=== PATIENT | female | born 1960 | race American Indian/Alaskan Native ===

== ENCOUNTER 2017-06-07 11:14 | Emergency (ER) | payer BC ==
--- NOTE | 2017-06-07 11:39 | ED PDOC ---
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 Patient reports that she has been getting care for her CA in [place] at the [facility] ([facility]). She states that she called her doctors yesterday as well as this morning out of concern for her symptoms, and that they told her that they could not understand her because of her slurred speech, and recommended that she go to the ED to be checked out. Patient went to work this morning, where she was also noted to have slurred speech and seemed to be confused, at which point she was brought to the ED by her coworkers. Patient's slurred speech has currently resolved, but she continues to have a headache. She denies any chest pain, syncope, numbness, weakness, vision changes, or gait instability. Of Note: Patient states that her presentation now is similar to her presentation two years ago, when she was previously at [facility] and found to have breast CA. Oncologist: Dr. Terra Hylton Against Medical Advice - AMA Patient Left Against Medical Advice: The patient declines admission to the hospital and wishes to leave the Emergency Department. This action is against my medical advice. This decision was made with informed refusal. The patient was told that admission to the hospital is necessary. Explanation of the reasons why were discussed. The risks of leaving were explained to the patient and include, but are not limited to, worsening of known or currently unknown conditions, permanent disability and from undiagnosed or untreated conditions. The patient has the capacity to make this informed decision and understands my explanation of the current medical problem and risks of leaving. The patient voluntarily accepts these risks and signed an AMA form documenting our conversation. The patient was given the opportunity to ask questions and reconsider. The patient was encouraged to return to the Emergency Department at any time for further care. NIHSS Stroke Scale - Date/Time Evaluation Performed When Was NIHSS Performed: Baseline - How Severe is the Stroke Level of Consciousness: 0=Alert LOC to Questions: 0=Both comments correct LOC to commands: 0=Obeys both correctly Best Gaze: 0=Normal Visual: 0=No visual loss Facial: 0=Normal Motor Arm - Left: 0=No drift Motor Arm - Right: 0=No drift Motor Leg - Left: 0=No drift Motor Leg - Right: 0=No drift Limb Ataxia: 0=Absent Best Language: 0=No aphasia Dysarthia: 0=Normal articulation Extinction & Inattention (Neglect): 0=Normal, no object rTPA Inclusion/Exclusion - Inclusion Criteria for Altepase Patient is 18 years or Older: Yes The Clinical Diagnosis of Ischemic Stroke That is Causing a Potentially Disabling Neurological Deficit: No Time of Onset is Well Established to be Less Than 270 Minute Before Treatment Would Begin: No Risk/Benefit Discussed With Patient/Family Member Present: No Past Medical History Reviewed: Historical Data, Nursing Documentation, Vital Signs - Medical History PMH: HTN, Malignancy Denies: Chronic Kidney Disease Other PMH: breast CA with metastasis to the brain, had course of chemo - Surgical History Other surgeries: mastectomy - Family History Family History: States: Unknown Family Hx - Home Medications Home Medications: Ambulatory Orders Medication Instructions Recorded Carvedilol [Coreg Cr] 20 mg PO DAILY 12/02/15 Valsartan/Hydrochlorothiazide 1 tab PO DAILY 12/02/15 [Diovan Hct 320-25 mg Tablet] Lapatinib Ditosylate [Tykerb] 750 mg PO DAILY 06/07/17 Levetiracetam [Keppra] 500 mg PO BID #60 tablet 06/07/17 Methylprednisolone [Medrol Dose 4 mg PO ASDIR #21 mg 06/07/17 Pack (21 tabs)] - Allergies Allergies/Adverse Reactions: Allergies Allergy/AdvReac Type Severity Reaction Status Date / Time No Known Allergies Allergy Verified 12/02/15 15:39 Review of Systems ROS Statement: Except As Marked, All Systems Reviewed And Found Negative Constitutional: Negative for: Other (denies syncope) Eyes: Negative for: Vision Change Cardiovascular: Negative for: Chest Pain Neurological: Positive for: Change in Speech (Patient had slurred speech but it is currently resolved), Headache. Negative for: Weakness, Incoordination ( denies gait instability), Dizziness Physical Exam - Reviewed Nursing Documentation Reviewed: Yes Vital Signs Reviewed: Yes - Physical Exam Appears: Positive for: Non-toxic, No Acute Distress Head Exam: Positive for: ATRAUMATIC, NORMOCEPHALIC Skin: Positive for: Normal Color, Warm Eye Exam: Positive for: Normal appearance, EOMI, PERRL Neck: Positive for: Normal, Supple Cardiovascular/Chest: Positive for: Regular Rate, Rhythm. Negative for: Murmur Respiratory: Positive for: Normal Breath Sounds. Negative for: Wheezing Gastrointestinal/Abdominal: Positive for: Normal Exam, Soft. Negative for: Tenderness Back: Positive for: Normal Inspection. Negative for: L CVA Tenderness, R CVA Tenderness Extremity: Positive for: Normal ROM. Negative for: Deformity, Swelling Neurologic/Psych: Positive for: Alert, babbitt spinner II-XII (Normal, no cranial nerve deficits), Oriented, Cerebellar Tests (Normal). Negative for: Motor/Sensory Deficits, Other (No slurred speech) - Laboratory Results Result Diagrams: 06/07/17 12:00 06/07/17 12:00 Medical Decision Making Medical Decision Making: Impression: Headache and Dysarthria since yesterday, ddx inlcude but not limited to possible CVA vs. Vasogenic edema from metastatic brain cancer Plan: Patient is outside of window for tPA, last time seen normal is unknown, possibly yesterday; due to this code stroke was not activated. Orders: * CT Head w/o contrast * EKG * Alcohol Serum * BMP * Urine Drug Screen * Troponin I * Reevaluation Will discuss case with neurologist and oncologist after CT are back. CT HEAD WITHOUT CONTRAST HISTORY: headache confusion COMPARISON: None available. TECHNIQUE: Axial computed tomography images were obtained through the head/brain without intravenous contrast. Radiation dose: Total exam DLP = 1051.16 mGy-cm. This CT exam was performed using one or more of the following dose reduction techniques: Automated exposure control, adjustment of the mA and/or kV according to patient size, and/or use of iterative reconstruction technique. FINDINGS: HEMORRHAGE: No intracranial hemorrhage. BRAIN: No discrete mass identified. However, there are multiple foci of vasogenic edema suggestive of neoplastic disease. There is coarse calcifications seen in the left temporoparietal region, increased in extent compared to prior examination. There is dense calcification along the anterior falx cerebri. This may represent a meningioma or near falx calcification. There is coarse inferior right parafalcine calcification new compared to prior examination. This is adjacent to area of vasogenic edema and likely represents a calcifying mass. There is new left inferior frontal vasogenic edema. There is increasing left temporal occipital vasogenic edema. There is increasing right occipital parietal vasogenic edema. All of these areas of vasogenic edema likely represent foci of metastatic disease. Further evaluation with gadolinium enhanced magnetic resonance imaging is suggested. No atrophy or chronic microvascular ischemic changes. VENTRICLES: Unremarkable. No hydrocephalus. CALVARIUM: Unremarkable. PARANASAL SINUSES: Unremarkable as visualized. No significant inflammatory changes. MASTOID AIR CELLS: Unremarkable as visualized. No inflammatory changes. OTHER FINDINGS: None. IMPRESSION: Multifocal vasogenic edema increased in extent and distribution compared to prior examination of 12/02/2015. Likely metastatic disease. Several areas of coarse parenchymal calcification likely represent calcifying metastases. Further evaluation with gadolinium enhanced magnetic resonance imaging is advised. 14:[address] Krishnan, Neurologist, who recommended for patient to have MRI Brain without contrast. He additionally suggested that the patient be started on Decadron 10 mg IV, and if patient will be admitted, to begin Keppra [address] Krishnan stated that patient is appropriate for discharge, but to first discuss case with patient's oncologist at [facility]. Also discussed all of findings and consultations with the patient herself, who is willing to follow the recommendations of the neurologist. Patient given Medrol pack. Called patient' oncologist's office at [facility], waiting call back. 15:31 Did not receive call back from oncologist at [facility]. Patient decided she wants to leave because she has "stuff to take care of," and states that she will go see her doctor in [place]. Patient is alert and oriented x3, and has no signs of confusion or neurological deficit at this time, and wishes to leave [facility]. Given Rx for Keppra and Medrol dose pack. Clinical Impression: Vasogenic brain edema, Metastatic cancer to brain Scribe Attestation: Documented by Soila Eugene, acting as a scribe for Mar Swanson MD. Provider Scribe Attestation: All medical record entries made by the Scribe were at my direction and personally dictated by me. I have reviewed the chart and agree that the record accurately reflects my personal performance of the history, physical exam, medical decision making, and the department course for this patient. I have also personally directed, reviewed, and agree with the discharge instructions and disposition. Disposition - Clinical Impression Clinical Impression: Metastatic cancer to brain, Vasogenic brain edema, Left against medical advice - Patient ED Disposition Is Patient to be Admitted: Yes Doctor Will See Patient In The: Office Counseled Patient/Family Regarding: Studies Performed, Diagnosis, Need For Followup - Disposition Referrals: Your, PCP [Other] Disposition: Against Medical Advice Disposition Time: 15:33 Condition: GOOD Additional Instructions: Take your medications. Follow up with your neurologist and oncologist in 2-3 days. Prescriptions: Levetiracetam [Keppra] 500 mg PO BID #60 tablet Methylprednisolone [Medrol Dose Pack (21 tabs)] 4 mg PO ASDIR #21 mg Instructions: Brain Metastases, Leaving Against Medical Advice
[2017-06-07 11:46] VITALS: BP 130/69; PULSE 67; RESP 20; TEMP 98.1; O2SAT 96
[2017-06-07 12:22] LABS: BASO # 0.1 K/uL (0.0-0.2); EOS # 0.1 K/uL (0.0-0.7); HEMOGLOBIN 13.4 g/dL (12.0-16.0); LYMPH # 2.2 K/uL (1.0-4.3); LYMPH % 42.9 % (20.0-40.0); MEAN CELL VOLUME 84.6 fl (81.0-99.0); MEAN CORPUSCULAR HGB CONC 34.3 g/dL (33.0-37.0); MEAN PLATELET VOLUME 9.7 fl (7.2-11.7); MONO # 0.6 K/uL (0.0-0.8); MONO % 12.2 % (0.0-10.0); NEUT # 2.2 K/uL (1.8-7.0); NEUT % 42.9 % (50.0-75.0); NRBC % 0.1 % (0.0-0.0); RBC 4.63 Mil/uL (3.80-5.20); RED CELL DISTRIBUTION WIDTH 13.7 % (11.5-14.5); WHITE BLOOD COUNT 5.2 K/uL (4.8-10.8)
[2017-06-07 12:25] LABS: INR 1.1 (0.9-1.2); PARTIAL THROMBOPLASTIN TIME 28.2 Seconds (25.6-37.1); PROTHROMBIN TIME 12.5 Seconds (9.8-13.1)
[2017-06-07 12:37] LABS: BLOOD UREA NITROGEN 14 mg/dl (7-17); CALCIUM 9.6 mg/dL (8.4-10.2); GFR AFRICAN-AMERICAN > 60; GFR NON-AFRICAN AMERICAN > 60
--- NOTE | 2017-06-07 13:02 | CT ---
PROCEDURE: CT HEAD WITHOUT CONTRAST. HISTORY: headache confusion COMPARISON: None available. TECHNIQUE: Axial computed tomography images were obtained through the head/brain without intravenous contrast. Radiation dose: Total exam DLP = 1051.16 mGy-cm. This CT exam was performed using one or more of the following dose reduction techniques: Automated exposure control, adjustment of the mA and/or kV according to patient size, and/or use of iterative reconstruction technique. FINDINGS: HEMORRHAGE: No intracranial hemorrhage. BRAIN: No discrete mass identified. However, there are multiple foci of vasogenic edema suggestive of neoplastic disease. There is coarse calcifications seen in the left temporoparietal region, increased in extent compared to prior examination. There is dense calcification along the anterior falx cerebri. This may represent a meningioma or near falx calcification. There is coarse inferior right parafalcine calcification new compared to prior examination. This is adjacent to area of vasogenic edema and likely represents a calcifying mass. There is new left inferior frontal vasogenic edema. There is increasing left temporal occipital vasogenic edema. There is increasing right occipital parietal vasogenic edema. All of these areas of vasogenic edema likely represent foci of metastatic disease. Further evaluation with gadolinium enhanced magnetic resonance imaging is suggested. No atrophy or chronic microvascular ischemic changes. VENTRICLES: Unremarkable. No hydrocephalus. CALVARIUM: Unremarkable. PARANASAL SINUSES: Unremarkable as visualized. No significant inflammatory changes. MASTOID AIR CELLS: Unremarkable as visualized. No inflammatory changes. OTHER FINDINGS: None. IMPRESSION: Multifocal vasogenic edema increased in extent and distribution compared to prior examination of 12/02/2015. Likely metastatic disease. Several areas of coarse parenchymal calcification likely represent calcifying metastases. Further evaluation with gadolinium enhanced magnetic resonance imaging is advised.
[2017-06-07] MEDS ORDERED: Dexamethasone 10 MG in Sodium Chloride 0.9% 50 ML IV ONE (13:22)
[2017-06-07] MEDS ORDERED: Potassium Chloride 20 mEq ER Tab PO ONE (13:23)
--- NOTE | 2017-06-09 18:22 | CARD ---
APPROVED REPORT EKG Measurement Heart [id number] [id number] <Conclusion> Normal sinus rhythm Minimal voltage criteria for LVH, may be normal variant T wave abnormality, consider anterior ischemia Abnormal ECG
== END 2017-06-07 15:37 | disposition left against medical advice (07) ==
LOC: H.ER 11:14
DX: C79.31 Secondary malignant neoplasm of brain (principal); G93.6 Cerebral edema; I10 Essential (primary) hypertension; Z85.3 Personal history of malignant neoplasm of breast
CPT/HCPCS: 70450; 80048; 82948; 84484; 85025; 85610; 85730; 93005; 99285; G0480

== ENCOUNTER 2017-08-25 15:41 | Emergency (ER) | payer BC ==
[2017-08-25 16:04] VITALS: PULSE 78
--- NOTE | 2017-08-25 17:10 | ED PDOC ---
HPI: Eye Injury/Pain Chief Complaint (Provider): blurry vision left eye History Per: Patient History/Exam Limitations: no limitations Onset/Duration Of Symptoms: Days (7) Current Symptoms Are (Timing): Still Present Injury To Eye?: No Severity: Moderate Wears Contact Lens?: No Associated Symptoms: denies: Pain, Swelling, Discharge From Eye Additional History Per: Patient Additional Complaint(s): 56 yr old F presents to ED with complaint of blurry vision of left eye x 1 week. PMHx includes breast cancer with metastasis to brain and liver. Patient has recent neurosurgery procedure on 08/11/17: placement of leksell frame and laser interstitial therapy of left temporal area for tx of brain metastasis. Denies one sided weakness, slurred speech, difficulty swallowing, nausea, vomiting, chest pain or difficulty walking. Reports normal urine and stool output, is tolerating PO fluids and solids. PMD: Dr. Cornell Oncologist: Dr. Terra Hylton ([phone]) ([facility] [address]) has f/u appt on 09/08/17 for repeat PET scan Neurosurgeon: Meir Beasley ([place]): has f/u appt on 09/08/17 <Lillian Stephenson - Last Filed: 08/25/17 21:55> <Kam Mckeon - Last Filed: 08/26/17 06:30> <Mar Owens - Last Filed: 08/26/17 09:36> Time Seen by Provider: 08/25/17 16:09 Chief Complaint (Nursing): Eye Problem Supervising Attending Note - Supervising Attending Note The Documented history was done by the: Physician Lock Assembler The documented physical exam was done by the: Physician Lock Assembler - Attestation: I have personally seen and examined this patient.: Yes I have fully participated in the care of the patient.: Yes I have reviewed all pertinent clinical information, including history, physical exam and plan: Yes <Kam Mckeon - Last Filed: 08/26/17 06:30> - Supervising Attending Note The Documented history was done by the: Physician Lock Assembler, Attending Physician The documented physical exam was done by the: Physician Lock Assembler, Attending Physician The documented procedures were done by the: Physician Lock Assembler, Attending Physician <Mar Owens - Last Filed: 08/26/17 09:36> Past Medical History Vital Signs: Last Vital Signs Temp 97.5 F L 08/25/17 16:01 Pulse 78 08/25/17 16:01 Resp 20 08/25/17 16:01 BP 146/93 H 08/25/17 16:01 Pulse Ox 98 08/25/17 16:01 - Medical History PMH: HTN, Malignancy Denies: Chronic Kidney Disease - Surgical History Other surgeries: left temporal leksell frame placement/laser interstitial tx - Family History Family History: States: Unknown Family Hx - Living Arrangements Living Arrangements: With Family - Social History Current smoker - smoking cessation education provided: No Ex-Smoker (has not smoked in the last 12 months): No Alcohol: None Drugs: Denies <Lillian Stephenson - Last Filed: 08/25/17 21:55> Vital Signs: Last Vital Signs Temp 98.2 F 08/25/17 22:47 Pulse 78 08/25/17 22:47 Resp 16 08/25/17 22:47 BP 142/79 08/25/17 22:47 Pulse Ox 97 08/25/17 22:47 <Kam Mckeon - Last Filed: 08/26/17 06:30> Reviewed: Historical Data, Nursing Documentation, Vital Signs Vital Signs: Last Vital Signs Temp 98.2 F 08/25/17 22:47 Pulse 78 08/25/17 22:47 Resp 16 08/25/17 22:47 BP 142/79 08/25/17 22:47 Pulse Ox 97 08/25/17 22:47 - Medical History PMH: No Chronic Diseases - Surgical History Surgical History: No Surg Hx - Family History Family History: States: No Known Family Hx <Mar Owens - Last Filed: 08/26/17 09:36> - Home Medications Home Medications: Ambulatory Orders Medication Instructions Recorded Carvedilol [Coreg Cr] 20 mg PO DAILY 12/02/15 Valsartan/Hydrochlorothiazide 1 tab PO DAILY 12/02/15 [Diovan Hct 320-25 mg Tablet] Lapatinib Ditosylate [Tykerb] 750 mg PO DAILY 06/07/17 Levetiracetam [Keppra] 500 mg PO BID #60 tablet 06/07/17 Methylprednisolone [Medrol Dose 4 mg PO ASDIR #21 mg 06/07/17 Pack (21 tabs)] Dexamethasone [Decadron] 2 mg PO DAILY #5 tab 08/25/17 - Allergies Allergies/Adverse Reactions: Allergies Allergy/AdvReac Type Severity Reaction Status Date / Time No Known Allergies Allergy Verified 08/25/17 15:56 Review of Systems Constitutional: Negative for: Fever, Chills, Sweats, Weakness Eyes: Positive for: Vision Change (left eye blurry vision) ENT: Negative for: Ear Pain, Nose Discharge, Throat Pain Cardiovascular: Negative for: Chest Pain, Palpitations, Light Headedness Respiratory: Negative for: Cough, Shortness of Breath, Hemoptysis, Wheezing Gastrointestinal: Negative for: Nausea, Vomiting, Abdominal Pain, Diarrhea Genitourinary Female: Negative for: Dysuria, Frequency Musculoskeletal: Negative for: Neck Pain, Shoulder Pain, Arm Pain Skin: Negative for: Rash, Lesions Neurological: Negative for: Weakness, Change in Speech, Confusion, Seizures, Headache, Dizziness Psych: Negative for: Anxiety <Lillian Stephenson - Last Filed: 08/25/17 21:55> ROS Statement: Except As Marked, All Systems Reviewed And Found Negative <Mar Owens - Last Filed: 08/26/17 09:36> Physical Exam - Physical Exam Appears: Positive for: No Acute Distress Head Exam: Positive for: ATRAUMATIC, NORMOCEPHALIC Skin: Positive for: Normal Color, Warm, Dry Eye Exam: Positive for: EOMI, PERRL, Other (patient able to distinguish color from left eye, poor effort with visual acuity test). Negative for: Nystagmus, Periorbital swelling, Periorbital tenderness, Conjunctival injection, Scleral icterus ENT: Negative for: Nasal Congestion, Pharyngeal Erythema, Tonsillar Exudate Neck: Positive for: Painless ROM, Supple Cardiovascular/Chest: Positive for: Regular Rate, Rhythm. Negative for: Gallop , Murmur Respiratory: Positive for: Normal Breath Sounds. Negative for: Crackles, Rhonchi Pulses-Carotid (L): 2+ Pulses-Carotid (R): 2+ Pulses-Radial (L): 2+ Pulses-Radial (R): 2+ Gastrointestinal/Abdominal: Positive for: Bowel Sounds (present/normal), Soft. Negative for: Tenderness Extremity: Positive for: Normal ROM. Negative for: Pedal Edema, Calf Tenderness , Swelling Neurologic/Psych: Positive for: Alert, excelsior machine operator II-XII (grossly intact), Oriented, Mood/Affect (normal/full range), Gait (normal). Negative for: Motor/Sensory Deficits, Aphasia, Facial Droop <Lillian Stephenson - Last Filed: 08/25/17 21:55> - Reviewed Nursing Documentation Reviewed: Yes Vital Signs Reviewed: Yes <Mar Owens - Last Filed: 08/26/17 09:36> - Laboratory Results Result Diagrams: 08/25/17 18:52 08/25/17 18:52 - ECG O2 Sat by Pulse Oximetry: 98 - Progress ED Course And Treament: -CBC w/diff: WBC 11.7, rest normal -CMP: AST/ALT 53/122, rest normal -CT head w/o contrast: grossly unchanged from prior examination, redemonstration of calcification lesions in left fronto-temporo lobe with extensive vasogenic edema throughout white matter tracts of frontal and parietal lobes -patient stable, tolerated PO fluids and solids -case discussed with neurosurgery Dr. Thomason recommended order Brain MRI w and w/o contrast -Brain MRI w and w/o contrast: a mass in the left parasellar region enhances homogeneously and appears to contact the left optic nerve near the optic chiasm , this likely represents a meningioma and measures 2.4 x 2 x 1.9 -MRI results discussed with neurosurgery-Dr. Thomason: patient is stable for discharge, recommends rx Decadron 2mg PO QD x 5 days, followup with oncologist sooner than scheduled appt of 09/08/17, f/u with neurologist as scheduled -Patient remained stable in ED, ambulating without difficulty, tolerating PO fluids and solids, imaging and labs results reviewed with patient, as well as outpatient followup instructions. <Lillian Stephenson - Last Filed: 08/25/17 21:55> - Laboratory Results Result Diagrams: 08/25/17 18:52 08/25/17 18:52 <Kam Mckeon - Last Filed: 08/26/17 06:30> - Laboratory Results Result Diagrams: 08/25/17 18:52 08/25/17 18:52 <Mar Owens - Last Filed: 08/26/17 09:36> Disposition - Patient ED Disposition Is Patient to be Admitted: No Counseled Patient/Family Regarding: Studies Performed, Diagnosis, Need For Followup, Rx Given - Disposition Disposition: Routine/Home Disposition Time: 21:50 <Lillian Stephenson - Last Filed: 08/25/17 21:55> <Kam Mckeon - Last Filed: 08/26/17 06:30> - Patient ED Disposition Is Patient to be Admitted: Transfer of Care Counseled Patient/Family Regarding: Studies Performed, Diagnosis - Disposition Disposition: Transfer of Care Disposition Time: 19:00 <Mar Owens - Last Filed: 08/26/17 09:36> - Clinical Impression Clinical Impression: Metastatic cancer to brain - Disposition Condition: STABLE Additional Instructions: -Take rx Decadron 2mg PO QD x 5 days -Followup with oncologist sooner than scheduled appt of 09/08/17 -Followup with with neurosurgeon as scheduled (patient has appt 09/08/17) Prescriptions: Dexamethasone [Decadron] 2 mg PO DAILY #5 tab Instructions: Brain Metastases
--- NOTE | 2017-08-25 18:04 | CT ---
PROCEDURE: CT HEAD WITHOUT CONTRAST. HISTORY: blurry vision-left eye, hx brain metastasis COMPARISON: 06/07/2017 TECHNIQUE: Axial computed tomography images were obtained through the head/brain without intravenous contrast. Radiation dose: Total exam DLP = mGy-cm. This CT exam was performed using one or more of the following dose reduction techniques: Automated exposure control, adjustment of the mA and/or kV according to patient size, and/or use of iterative reconstruction technique. FINDINGS: HEMORRHAGE: No intracranial hemorrhage. BRAIN: Re- demonstration of calcified lesion in the left fronto temporal lobe with extensive vasogenic edema throughout the white matter tracts of the frontal lobe and parietal lobe. Findings grossly unchanged from prior examination. VENTRICLES: Unremarkable. No hydrocephalus. CALVARIUM: Unremarkable. PARANASAL SINUSES: Unremarkable as visualized. No significant inflammatory changes. MASTOID AIR CELLS: Unremarkable as visualized. No inflammatory changes. OTHER FINDINGS: None. IMPRESSION: Re- demonstration of calcified lesion in the left fronto temporal lobe with extensive vasogenic edema throughout the white matter tracts of the frontal lobe and parietal lobe. Findings grossly unchanged from prior examination.
[2017-08-25 18:56] LABS: BASO % 0.4 % (0.0-2.0); EOS % 0.3 % (0.0-4.0); HEMOGLOBIN 12.1 g/dL (12.0-16.0); LYMPH # 1.8 K/uL (1.0-4.3); LYMPH % 15.7 % (20.0-40.0); MEAN CELL VOLUME 89.2 fl (81.0-99.0); MEAN CORPUSCULAR HEMOGLOBIN 29.6 pg (27.0-31.0); MEAN CORPUSCULAR HGB CONC 33.2 g/dL (33.0-37.0); MEAN PLATELET VOLUME 9.4 fl (7.2-11.7); MONO # 0.4 K/uL (0.0-0.8); MONO % 3.8 % (0.0-10.0); NEUT # 9.4 K/uL (1.8-7.0); NEUT % 79.8 % (50.0-75.0); NRBC % 0.1 % (0.0-0.0); RBC 4.1 Mil/uL (3.80-5.20); RED CELL DISTRIBUTION WIDTH 16.2 % (11.5-14.5); WHITE BLOOD COUNT 11.7 K/uL (4.8-10.8)
[2017-08-25] MEDS ORDERED: Dexamethasone 10 MG in Dextrose 5% In Water 50 ML IV ONE (19:03)
[2017-08-25 19:22] LABS: ALB/GLOB RATIO 1.1 (1.0-2.1); ALBUMIN 3.6 g/dL (3.5-5.0); ALT/SGPT 122 U/L (9-52); AST/SGOT 53 U/L (14-36); BLOOD UREA NITROGEN 14 mg/dl (7-17); CALCIUM 9.5 mg/dL (8.4-10.2); GFR AFRICAN-AMERICAN > 60; GFR NON-AFRICAN AMERICAN > 60
[2017-08-25] MEDS ORDERED: Dexamethasone 10 MG in Sodium Chloride 0.9% 50 ML IV ONE (19:30)
[2017-08-25] MEDS ORDERED: Gadodiamide 287 MG/ML VIAL (15ML) IV ONE (19:32)
[2017-08-25 22:47] VITALS: BP 142/79; RESP 16; TEMP 98.2; O2SAT 97
--- NOTE | 2017-08-28 08:55 | MRI ---
PROCEDURE: MRI BRAIN WITH AND WITHOUT CONTRAST HISTORY: brain mets edema COMPARISON: Brain MRI 12/02/2015 without contrast as well as head CT without contrast 08/25/2017. TECHNIQUE: Multiplanar, multisequence MR images of the brain were obtained with and without intravenous contrast enhancement. FINDINGS: HEMORRHAGE: Multifocal metastases are identified throughout the brain with occasional calcifications. Microscopic calcification or hemosiderin may also be present in all of these foci and therefore hemorrhagic metastases are questioned. No obvious subarachnoid, subdural or epidural hematoma identified. DWI: No evidence of an acute or early subacute infarction. 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 This lesion is well-circumscribed and enhances brightly . However, there are numerous poorly circumscribed peripherally enhancing lesions which. Different in this sphenoid wing lesion scattered throughout the cerebrum in the interval with the cerebellum now involve the inferomedial segments and possibly the upper mid dull at the right side. A left frontal lesion at the anterior vertex is increased in size now measuring 2.6 x 1.3 cm compared to 2.1 by 0.7 cm previously. An enlarging anterior parafalcine lesion now measures 3.1 x 2.5 cm compared to 2.1 x 1.0 cm. The left temporal lobe lesion measures 2.9 x 2.2 cm previously measuring 1.9 by 1.0 cm. 3.3 x 2.1 cm previously measured 1.5 x 0.8 cm. A new sub cm enhancing focus is seen at the medial right temporal lobe measuring only approximately 6 mm greatest dimension with 3-4 new, similar foci at the anterior inferior bilateral cerebellar hemispheres. Two new sub cm cortical enhancing lesions are seen at the left frontal lobe medially. Overall vasogenic edema is increased throughout the lesions encountered wrist ictal increased at the right temporooccipital distribution. There is no subfalcine herniation or crowding of the basilar cisterns. ENHANCEMENT: Please see brain parenchyma section above. VENTRICLES: Unremarkable. No hydrocephalus. CRANIUM: Unremarkable. ORBITS: Grossly unremarkable. PARANASAL SINUSES/MASTOIDS: Clear VASCULAR SYSTEM: Skull base flow voids intact. OTHER FINDINGS: None . IMPRESSION: Advancing metastases with mild enlargement a possible benign meningioma left sphenoid wing. Significant increase in vasogenic edema is seen throughout the cerebrum without falcine or subuncal herniation.
== END 2017-08-25 22:48 | disposition home or self-care (01) ==
LOC: H.ER 15:41
DX: C79.31 Secondary malignant neoplasm of brain (principal); I10 Essential (primary) hypertension
CPT/HCPCS: 70450; 70553; 80053; 85025; 96365; 99283; A9579; J1100

== ENCOUNTER 2017-10-15 16:39 | Inpatient (IN) | payer BC ==
[2017-10-15] MEDS ORDERED: Sodium Chloride 0.9% 1,000 ML IV STA ×2 (17:31→17:53)
[2017-10-15 17:46] LABS: BASO % 0.3 % (0.0-2.0); EOS % 0.2 % (0.0-4.0); HEMOGLOBIN 16.8 g/dL (12.0-16.0); LYMPH # 2.2 K/uL (1.0-4.3); LYMPH % 23.8 % (20.0-40.0); MEAN CELL VOLUME 89.5 fl (81.0-99.0); MEAN CORPUSCULAR HEMOGLOBIN 30.1 pg (27.0-31.0); MEAN CORPUSCULAR HGB CONC 33.6 g/dL (33.0-37.0); MEAN PLATELET VOLUME 10.6 fl (7.2-11.7); MONO # 0.9 K/uL (0.0-0.8); MONO % 10.1 % (0.0-10.0); NEUT % 65.6 % (50.0-75.0); NRBC % 0.5 % (0.0-0.0); RBC 5.6 Mil/uL (3.80-5.20); RED CELL DISTRIBUTION WIDTH 14.8 % (11.5-14.5); WHITE BLOOD COUNT 9.1 K/uL (4.8-10.8)
[2017-10-15 17:48] LABS: VENOUS BLOOD GAS BASE EXCESS 5.6 mmol/L (0.0-2.0); VENOUS BLOOD GAS PCO2 45 mmHg (40-60); VENOUS BLOOD GAS PO2 19 mm/Hg (30-55); VENOUS BLOOD PH 7.44 (7.32-7.43)
[2017-10-15 17:53] LABS: ALB/GLOB RATIO 1.3 (1.0-2.1); ALBUMIN 4.2 g/dL (3.5-5.0); ALT/SGPT 50 U/L (9-52); AST/SGOT 73 U/L (14-36); BLOOD UREA NITROGEN 22 mg/dl (7-17); CALCIUM 10.2 mg/dL (8.4-10.2); GFR AFRICAN-AMERICAN > 60; GFR NON-AFRICAN AMERICAN 57
--- NOTE | 2017-10-15 17:53 | ED PDOC ---
HPI: General Adult Time Seen by Provider: 10/15/17 16:47 Chief Complaint (Nursing): Weakness/Neurological Deficit History Per: Patient, Family (this is a 56 yo lady who presents for evaluation of progressive weakness. 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 Patient denies cough, nausea, vomiting, diarrhea. Her sister does not have information on her last visit to the [facility] because she did not go with her. Her who accompanied her is not present. Her sister says that she does not know where the patient's is.) Past Medical History Reviewed: Historical Data, Nursing Documentation, Vital Signs Vital Signs: Last Vital Signs Temp 99.6 F 10/15/17 16:41 Pulse 106 H 10/15/17 18:47 Resp 21 10/15/17 18:47 BP 104/73 10/15/17 16:41 Pulse Ox 98 10/15/17 18:47 - Medical History PMH: HTN, Malignancy (breast cancer with mets) Denies: Chronic Kidney Disease - Family History Family History: States: Unknown Family Hx - Living Arrangements Living Arrangements: With Family - Home Medications Home Medications: Ambulatory Orders Medication Instructions Recorded Carvedilol [Coreg Cr] 20 mg PO DAILY 12/02/15 Valsartan/Hydrochlorothiazide 1 tab PO DAILY 12/02/15 [Diovan Hct 320-25 mg Tablet] Lapatinib Ditosylate [Tykerb] 750 mg PO DAILY 06/07/17 Levetiracetam [Keppra] 500 mg PO BID #60 tablet 06/07/17 Methylprednisolone [Medrol Dose 4 mg PO ASDIR #21 mg 06/07/17 Pack (21 tabs)] Dexamethasone [Decadron] 2 mg PO DAILY #5 tab 08/25/17 - Allergies Allergies/Adverse Reactions: Allergies Allergy/AdvReac Type Severity Reaction Status Date / Time No Known Allergies Allergy Verified 08/25/17 15:56 Review of Systems ROS Statement: Except As Marked, All Systems Reviewed And Found Negative Constitutional: Positive for: Weakness. Negative for: Fever ENT: Negative for: Throat Pain Cardiovascular: Negative for: Chest Pain, Palpitations Respiratory: Negative for: Cough, Shortness of Breath, Hemoptysis, SOB with Exertion Gastrointestinal: Negative for: Nausea, Vomiting, Abdominal Pain, Diarrhea Genitourinary Female: Negative for: Dysuria, Frequency Physical Exam - Reviewed Nursing Documentation Reviewed: Yes Vital Signs Reviewed: Yes - Physical Exam Appears: Positive for: Well, Non-toxic, No Acute Distress Head Exam: Positive for: ATRAUMATIC, NORMAL INSPECTION, NORMOCEPHALIC Skin: Positive for: Normal Color, Warm, DRY Eye Exam: Positive for: EOMI, Normal appearance, PERRL ENT: Positive for: Normal ENT Inspection Neck: Positive for: Normal, Painless ROM Cardiovascular/Chest: Positive for: Regular Rate, Rhythm Respiratory: Positive for: CNT, Normal Breath Sounds Gastrointestinal/Abdominal: Positive for: Normal Exam, Soft Back: Positive for: Normal Inspection Extremity: Positive for: Other (motor 5/5 in both UE and LE; equal). Negative for: Tenderness, Deformity, Swelling Neurologic/Psych: Positive for: Alert, Oriented - Laboratory Results Result Diagrams: 10/15/17 17:39 10/15/17 17:39 - ECG O2 Sat by Pulse Oximetry: 100 Medical Decision Making Medical Decision Making: case d/w Sveta (nurse at [facility] who answered phone) who read the patient's documentation. Per her readings, patient was admitted on 06/12/2017 for 3 days because of altered mental status. She had slurred speech and blurred vision then. She was treated there for 3 days with Decadron, Keppra. It was noted that she had disease progression with leptomeningeal involvement. She was recommending to undergo radiation. She then return for followup 09/10/2017. According to the notes read, there was no surgical procedure done. Hospice care was recommended at that visit. She then was lost to followup. According to Sveta, she was advised to seek hospice care. Received notes from [facility] regarding her treatment there. The notes are scanned into her chart here by the unit secretary. Disposition - Clinical Impression Clinical Impression: Breast cancer metastasized to brain - Patient ED Disposition Is Patient to be Admitted: Yes Doctor Will See Patient In The: Hospital - Disposition Disposition: Transfer of Care Disposition Time: 18:52 Condition: FAIR Forms: TM (Indonesian) - Pt Status Changed To: Hospital Disposition Of: Inpatient - Admit Certification Admit to Inpatient:: After my assessment, the patient will require hospitalization for at least two midnights. This is because of the severity of symptoms shown, intensity of services needed, and/or the medical risk in this patient being treated as an outpatient. - POA Present On Arrival: None
[2017-10-15 17:58] LABS: INR 1.4 (0.9-1.2); PARTIAL THROMBOPLASTIN TIME 26.8 Seconds (25.6-37.1); PROTHROMBIN TIME 15.3 Seconds (9.8-13.1)
--- NOTE | 2017-10-15 18:06 | CT ---
PROCEDURE: CT HEAD WITHOUT CONTRAST. HISTORY: h/o breast cancer with mets to brain COMPARISON: CT head dated 08/25/2017. TECHNIQUE: Axial computed tomography images were obtained through the head/brain without intravenous contrast. Radiation dose: Total exam DLP = 825.8 mGy-cm. This CT exam was performed using one or more of the following dose reduction techniques: Automated exposure control, adjustment of the mA and/or kV according to patient size, and/or use of iterative reconstruction technique. FINDINGS: HEMORRHAGE: No intracranial hemorrhage. BRAIN: Redemonstration of multiple areas of vasogenic edema in the bilateral frontal lobes, bilateral parietal and occipital lobes. Redemonstration of high-density left parasellar and left temporoparietal lesions. VENTRICLES: Stably prompt. No hydrocephalus. CALVARIUM: Unremarkable. PARANASAL SINUSES: Unremarkable as visualized. No significant inflammatory changes. MASTOID AIR CELLS: Unremarkable as visualized. No inflammatory changes. OTHER FINDINGS: None. IMPRESSION: Stable appearance of bilateral metastatic lesions with associated vasogenic edema. No gross evidence of new lesion or significant mass-effect.
[2017-10-15 18:25] LABS: SQUAMOUS EPITHIAL < 1 /hpf (0-5); URINE AMORPHOUS SEDIMENT RARE /ul (<OCC); URINE BILIRUBIN NEGATIVE (NEGATIVE); URINE BLOOD SMALL (NEGATIVE); URINE CLARITY SLIGHTY-CLOUDY (Clear); URINE COLOR AMBER (YELLOW); URINE GLUCOSE (UA) NEG (Normal); URINE HYALINE CAST >20 /hpf (0-2); URINE LEUKOCYTE ESTERASE NEG Leu/uL (Negative); URINE PROTEIN 30 mg/dL (NEGATIVE)
[2017-10-15] MEDS ORDERED: cefTRIAXone (Rocephin) 1 gm Inj ONE (18:40)
--- NOTE | 2017-10-15 19:36 | CP.PCM.HP ---
History of Present Illness - History of Present Illness History of Present Illness: 56 yo female with history of HTN and 8 year history of bilateral breast cancer brought by family because of being debilitated and progressively weak for over 2 weeks. Patient had brain [facility] on 08[facility]11[facility] in [facility] in [place] because of wide spread metastasis. 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 In spite of that, patient was able to move around in her house until 2 weeks ago when she remained in bed, not eating and not taking her medications. They claimed she did not have chest pain, SOB, vomiting, diarrhea and fever. Patient was diagnosed with bilateral breast cancer 8 yrs ago and had bilateral lumpectomy, chemotherapy and radiotherapy. Sister claimed radical mastectomy was offered but patient declined. Sister and mother who are the next of kin wanted her to go to hospice and requested DNR. Patient choose her sister to make decision for her. Present on Admission - Present on Admission Any Indicators Present on Admission: No History of DVT/PE: No History of Uncontrolled Diabetes: No Urinary Catheter: No Decubitus Ulcer Present: No Review of Systems - Review of Systems All systems: reviewed and no additional remarkable complaints except (aside from those mentioned above, 12 point system review were negative by me) Past Patient History - Infectious Disease Hx of Infectious Diseases: None - Tetanus Immunizations Tetanus Immunization: Unknown - Past Medical History & Family History Past Medical History?: Yes - Past Social History Smoking Status: Never Smoked Chewing Tobacco Use: No Cigar Use: No Alcohol: Occasional Drugs: Denies Home Situation {Lives}: Alone - CARDIAC Hx Hypertension: Yes - PULMONARY Hx Respiratory Disorders: No - NEUROLOGICAL Hx Neurological Disorder: No - HEENT Hx HEENT Problems: No - RENAL Hx Chronic Kidney Disease: No - ENDOCRINE/METABOLIC Hx Endocrine Disorders: No - HEMATOLOGICAL/ONCOLOGICAL Hx Blood Disorders: Yes Hx Cancer: Yes Hx Metastesis: Yes (LIVER and Brain) Other/Comment: B/L BREAST CA - INTEGUMENTARY Hx Dermatological Problems: No - MUSCULOSKELETAL/RHEUMATOLOGICAL Hx Musculoskeletal Disorders: No Hx Falls: No - GASTROINTESTINAL Hx Gastrointestinal Disorders: No - GENITOURINARY/GYNECOLOGICAL Hx Genitourinary Disorders: No - PSYCHIATRIC Hx Psychophysiologic Disorder: No Hx Substance Use: No - SURGICAL HISTORY Hx Surgeries: Yes Hx Breast Biopsy: Yes Other/Comment: bilateral lumpectomy, brain surgery - ANESTHESIA Hx Anesthesia: Yes Hx Anesthesia Reactions: No Meds Allergies/Adverse Reactions: Allergies Allergy/AdvReac Type Severity Reaction Status Date / Time No Known Allergies Allergy Verified 08/25/17 15:56 Physical Exam - Constitutional Appears: No Acute Distress - Head Exam Head Exam: ATRAUMATIC - Eye Exam Eye Exam: absent: Scleral icterus - ENT Exam ENT Exam: Mucous Membranes Moist - Neck Exam Neck exam: Negative for: Meningismus - Respiratory Exam Respiratory Exam: absent: Rales, Rhonchi, Wheezes, Respiratory Distress - Cardiovascular Exam Cardiovascular Exam: REGULAR RHYTHM, +S1, +S2 - GI/Abdominal Exam GI & Abdominal Exam: Soft. absent: Tenderness - Rectal Exam Rectal Exam: Deferred - Extremities Exam Extremities exam: Negative for: calf tenderness, pedal edema - Neurological Exam Neurological exam: Altered - Psychiatric Exam Psychiatric exam: Flat Affect - Skin Skin Exam: Dry, Intact Results - Vital Signs Recent Vital Signs: Last Vital Signs Temp 99.6 F 10/15/17 16:41 Pulse 106 H 10/15/17 18:47 Resp 21 10/15/17 18:47 BP 104/73 10/15/17 16:41 Pulse Ox 100 10/15/17 18:52 - Labs Result Diagrams: 10/15/17 17:39 10/15/17 17:39 Labs: Laboratory Results - last 24 hr 10/15/17 10/15/17 10/15/17 17:11 17:39 17:39 WBC 9.1 RBC 5.60 H Hgb 16.8 H D Hct 50.1 H MCV 89.5 MCH 30.1 MCHC 33.6 RDW 14.8 H Plt Count 70 L D MPV 10.6 Neut % (Auto) 65.6 Lymph % (Auto) 23.8 Howell % (Auto) 10.1 H Eos % (Auto) 0.2 Baso % (Auto) 0.3 Neut # (Auto) 6.0 Lymph # (Auto) 2.2 Howell # (Auto) 0.9 H Eos # (Auto) 0.0 Baso # (Auto) 0.0 PT INR APTT pO2 VBG pH VBG pCO2 VBG HCO3 VBG Total CO2 VBG O2 Sat (Calc) VBG Base Excess VBG Potassium Sodium 147 Chloride 105 Glucose Lactate FiO2 Crit Value Called To Crit Value Called By Crit Value Read Back Blood Gas Notified Time Potassium 3.8 Carbon Dioxide 26 Anion Gap 20 BUN 22 H Creatinine 1.0 Est GFR ( Amer) > 60 Est GFR (Non-Af Amer) 57 POC Glucose (mg/dL) 125 H Random Glucose 136 H Calcium 10.2 Total Bilirubin 2.8 H AST 73 H D ALT 50 Alkaline Phosphatase 110 Total Protein 7.4 Albumin 4.2 Globulin 3.3 Albumin/Globulin Ratio 1.3 Venous Blood Potassium Urine Color Urine Clarity Urine pH Ur Specific [place]annah Urine Protein Urine Glucose (UA) Urine Ketones Urine Blood Urine Nitrate Urine Bilirubin Urine Urobilinogen Ur Leukocyte Esterase Ur Squamous Epith Cells Amorphous Sediment Hyaline Casts 10/15/17 10/15/17 10/15/17 17:39 17:39 18:10 WBC RBC Hgb Hct MCV MCH MCHC RDW Plt Count MPV Neut % (Auto) Lymph % (Auto) Howell % (Auto) Eos % (Auto) Baso % (Auto) Neut # (Auto) Lymph # (Auto) Howell # (Auto) Eos # (Auto) Baso # (Auto) PT 15.3 H INR 1.4 H APTT 26.8 pO2 19 L VBG pH 7.44 H VBG pCO2 45 VBG HCO3 27.5 VBG Total CO2 32.0 H VBG O2 Sat (Calc) 30.8 L VBG Base Excess 5.6 H VBG Potassium 3.5 L Sodium 147.0 Chloride 104.0 Glucose 138 H Lactate 3.8 H FiO2 21.0 Crit Value Called To parveen Kat md Crit Value Called By Barbara magana Crit Value Read Back Y Blood Gas Notified Time 1747 Potassium Carbon Dioxide Anion Gap BUN Creatinine Est GFR ( Amer) Est GFR (Non-Af Amer) POC Glucose (mg/dL) Random Glucose Calcium Total Bilirubin AST ALT Alkaline Phosphatase Total Protein Albumin Globulin Albumin/Globulin Ratio Venous Blood Potassium 3.5 L Urine Color Jyoti Urine Clarity Slighty-cloudy Urine pH 5.0 Ur Specific Savannah 1.028 Urine Protein 30 Urine Glucose (UA) Neg Urine Ketones Trace Urine Blood Small Urine Nitrate Negative Urine Bilirubin Negative Urine Urobilinogen 4.0 H Ur Leukocyte Esterase Neg Ur Squamous Epith Cells < 1 Amorphous Sediment Rare H Hyaline Casts >20 H Assessment & Plan - Assessment and Plan (Free Text) Assessment: 56 yo female with history of HTN and 8 year history of bilateral breast cancer brought by family because of being debilitated and progressively weak for over 2 weeks. Patient had brain surgery on 08/11/17 in [facility] in [place] because of wide spread metastasis. 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 In spite of that, patient was able to move around in her house until 2 weeks ago when she remained in bed, not eating and not taking her medications. They claimed she did not have chest pain, SOB, vomiting, diarrhea and fever. Patient was diagnosed with bilateral breast cancer 8 yrs ago and had bilateral lumpectomy, chemotherapy and radiotherapy. Sister claimed radical mastectomy was offered but patient declined. Sister and mother who are the next kin wanted her to go to hospice and request DNR. Patient choose her sister to make decision for her. 1. Metastatic Breasts Cancer request for hospice care CT scan of head: metastatic lesions with vasogenic edema, no change from previous 2. HTN BP stable on Valsartan and Coreg 3. DVT prophylaxis venodyne boots while in bed
[2017-10-16 06:51] LABS: BLOOD UREA NITROGEN 19 mg/dl (7-17); CALCIUM 9.8 mg/dL (8.4-10.2); GFR AFRICAN-AMERICAN > 60; GFR NON-AFRICAN AMERICAN > 60
[2017-10-16 07:01] LABS: BASO % 0.5 % (0.0-2.0); EOS % 0.2 % (0.0-4.0); HEMOGLOBIN 15.8 g/dL (12.0-16.0); LYMPH # 2.3 K/uL (1.0-4.3); LYMPH % 27.6 % (20.0-40.0); MEAN CELL VOLUME 90.4 fl (81.0-99.0); MEAN CORPUSCULAR HEMOGLOBIN 30.2 pg (27.0-31.0); MEAN CORPUSCULAR HGB CONC 33.4 g/dL (33.0-37.0); MEAN PLATELET VOLUME 10.8 fl (7.2-11.7); MONO % 11.9 % (0.0-10.0); NEUT # 5.1 K/uL (1.8-7.0); NEUT % 59.8 % (50.0-75.0); NRBC % 0.3 % (0.0-0.0); RBC 5.23 Mil/uL (3.80-5.20); RED CELL DISTRIBUTION WIDTH 14.4 % (11.5-14.5); WHITE BLOOD COUNT 8.4 K/uL (4.8-10.8)
[2017-10-16] MEDS ORDERED: Oxycodone/Acetaminophen 5/325 mg Tab PO PRN (07:45)
[2017-10-16] MEDS ORDERED: Patient's Own Med (Valsartan/Hydrochlorothiazide [Diovan Hct 320-25 Mg Tablet] 1 TAB) PO SCH (09:00)
[2017-10-16] MEDS ORDERED: LAPATINIB DITOSYLATE PO SCH (09:00)
[2017-10-16] MEDS: Pantoprazole 40 mg EC Tab PO SCH (09:24)
--- NOTE | 2017-10-16 09:30 | CARD ---
APPROVED REPORT EKG Measurement Heart [id number] <Conclusion> Normal sinus rhythm Left ventricular hypertrophy with repolarization abnormality Non-specific ST-T wave changes in lateral leads cannot exlude ischemia Abnormal ECG
--- NOTE | 2017-10-16 18:54 | CP.PCM.PN ---
Subjective - Date & Time of Evaluation Date of Evaluation: 10/16/17 Time of Evaluation: 10:30 - Subjective Subjective: Patient seen and examined. Complained of pain on her left blind eye. Objective - Vital Signs/Intake and Output Vital Signs (last 24 hours): Temp Pulse Resp BP Pulse Ox 98.3 F 64 20 107/83 97 10/16/17 16:37 10/16/17 16:46 10/16/17 16:37 10/16/17 16:46 10/16/17 16:37 - Medications Medications: Current Medications Carvedilol (Coreg) 6.25 mg PO BID COUNTS INCLUDE 234 BEDS AT THE [facility] Last Admin: 10/16/17 16:46 Dose: 6.25 mg Docusate Sodium (Colace) 100 mg PO BID COUNTS INCLUDE 234 BEDS AT THE [facility] Last Admin: 10/16/17 16:46 Dose: 100 mg Home Med (Lapatinib Ditosylate [Tykerb]) 750 mg PO DAILY COUNTS INCLUDE 234 BEDS AT THE [facility] Hydrochlorothiazide (Hydrodiuril) 25 mg PO DAILY COUNTS INCLUDE 234 BEDS AT THE [facility] Last Admin: 10/16/17 09:23 Dose: 25 mg Hydromorphone HCl (Dilaudid) 0.5 mg IVP Q4 PRN PRN Reason: Pain, severe (8-10) Lorazepam (Ativan) 0.5 mg IVP Q6 PRN PRN Reason: Anxiety Oxycodone/Acetaminophen (Percocet 5/325 Mg Tab) 1 tab PO Q4 PRN PRN Reason: Pain, moderate (4-7) Stop: 10/19/17 07:46 Pantoprazole Sodium (Protonix Ec Tab) 40 mg PO DAILY COUNTS INCLUDE 234 BEDS AT THE [facility] Last Admin: 10/16/17 09:24 Dose: 40 mg Valsartan (Diovan) 320 mg PO DAILY COUNTS INCLUDE 234 BEDS AT THE [facility] Last Admin: 10/16/17 09:23 Dose: 320 mg - Labs Labs: 10/16/17 05:20 10/16/17 05:20 PT 15.3 Seconds (9.8-13.1) H 10/15/17 17:39 INR 1.4 (0.9-1.2) H 10/15/17 17:39 APTT 26.8 Seconds (25.6-37.1) 10/15/17 17:39 - Constitutional Appears: No Acute Distress - Head Exam Head Exam: absent: ATRAUMATIC - Eye Exam Eye Exam: absent: Scleral icterus - ENT Exam ENT Exam: Mucous Membranes Moist - Neck Exam Neck Exam: absent: Meningismus - Respiratory Exam Respiratory Exam: absent: Rales, Rhonchi, Wheezes, Respiratory Distress - Cardiovascular Exam Cardiovascular Exam: REGULAR RHYTHM, +S1, +S2 - GI/Abdominal Exam GI & Abdominal Exam: Soft. absent: Tenderness - Rectal Exam Rectal Exam: Deferred - Neurological Exam Neurological Exam: Alert - Psychiatric Exam Psychiatric exam: Normal Affect - Skin Skin Exam: Dry, Intact Assessment and Plan - Assessment and Plan (Free Text) Assessment: 56 yo female with history of HTN and 8 year history of bilateral breast cancer brought by family because of being debilitated and progressively weak for over 2 weeks. Patient had brain surgery on 08/11/17 in [facility] in [place] because of wide spread metastasis. 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 In spite of that, patient was able to move around in her house until 2 weeks ago when she remained in bed, not eating and not taking her medications. They claimed she did not have chest pain, SOB, vomiting, diarrhea and fever. Patient was diagnosed with bilateral breast cancer 8 yrs ago and had bilateral lumpectomy, chemotherapy and radiotherapy. Sister claimed radical mastectomy was offered but patient declined. Sister and mother who are the next kin wanted her to go to hospice and request DNR. Patient choose her sister to make decision for her. 1. Metastatic Breasts Cancer hospice care pending CT scan of head: metastatic lesions with vasogenic edema, no change from previous 2. HTN BP stable on Valsartan and Coreg 3. DVT prophylaxis venodyne boots while in bed
[2017-10-17] MEDS: Pantoprazole 40 mg EC Tab PO SCH (08:39)
--- NOTE | 2017-10-17 14:24 | CP.PCM.PN ---
Subjective - Date & Time of Evaluation Date of Evaluation: 10/17/17 Time of Evaluation: 11:00 - Subjective Subjective: Patient was seen and examined today. She is now inpatient hospice. Unfortunately as per SW patient has no family that is able to take care of her at home. Patient is comfortable with no complaints today. Lethargic. Objective - Vital Signs/Intake and Output Vital Signs (last 24 hours): Temp Pulse Resp BP Pulse Ox 97.5 F L 73 18 121/87 97 10/17/17 08:04 10/17/17 11:51 10/17/17 08:04 10/17/17 08:04 10/17/17 11:51 - Medications Medications: Current Medications Carvedilol (Coreg) 6.25 mg PO BID [facility] Last Admin: 10/17/17 08:38 Dose: 6.25 mg Docusate Sodium (Colace) 100 mg PO BID [facility] Last Admin: 10/17/17 08:38 Dose: 100 mg Home Med (Lapatinib Ditosylate [Tykerb]) 750 mg PO DAILY [facility] Hydrochlorothiazide (Hydrodiuril) 25 mg PO DAILY [facility] Last Admin: 10/17/17 08:41 Dose: 25 mg Hydromorphone HCl (Dilaudid) 0.5 mg IVP Q4 PRN PRN Reason: Pain, severe (8-10) Lorazepam (Ativan) 0.5 mg IVP Q6 PRN PRN Reason: Anxiety Oxycodone/Acetaminophen (Percocet 5/325 Mg Tab) 1 tab PO Q4 PRN PRN Reason: Pain, moderate (4-7) Stop: 10/19/17 07:46 Pantoprazole Sodium (Protonix Ec Tab) 40 mg PO DAILY [facility] Last Admin: 10/17/17 08:39 Dose: 40 mg Valsartan (Diovan) 320 mg PO DAILY [facility] Last Admin: 10/17/17 08:39 Dose: 320 mg - Labs Labs: 10/16/17 05:20 10/16/17 05:20 PT 15.3 Seconds (9.8-13.1) H 10/15/17 17:39 INR 1.4 (0.9-1.2) H 10/15/17 17:39 APTT 26.8 Seconds (25.6-37.1) 10/15/17 17:39 - Additional Findings Additional findings: Physical exam: Constitutional- cooperative, drowsy but easily arousable Head- NCAT, PERRL 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 Right eye reactive to light ENT- normal exam, MMM. Neck- normal inspection, supple, no JVD Respiratory- CTAB, no wheezes rales rhonchi Cardiovascular- RRR, +S1, +S2 no MRG GI/Abdominal- normal bowel sounds, soft, no mass, no hsm Skin- warm, dry Extremities Exam- normal capillary refill, normal inspection Neurological Exam- alert, awake, oriented Psych- normal mood, normal affect Assessment and Plan - Assessment and Plan (Free Text) Plan: 56 yo female with history of HTN and 8 year history of bilateral breast cancer brought by family because of being debilitated and progressively weak for over 2 weeks. Patient had brain surgery on 08/11/17 in [facility] in [place] because of wide spread metastasis. 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 In spite of that, patient was able to move around in her house until 2 weeks ago when she remained in bed, not eating and not taking her medications. They claimed she did not have chest pain, SOB, vomiting, diarrhea and fever. Patient was diagnosed with bilateral breast cancer 8 yrs ago and had bilateral lumpectomy, chemotherapy and radiotherapy. Sister claimed radical mastectomy was offered but patient declined. Sister and mother who are the next kin wanted her to go to hospice and request DNR. Patient choose her sister to make decision for her. 1. Metastatic Breast Cancer For inpatient hospice CT scan of head: metastatic lesions with vasogenic edema, no change from previous Family unable to provide assistance at home; home hospice not an option at this point Social work following 2. HTN BP stable on Valsartan and Coreg 3. DVT prophylaxis venodyne boots while in bed
[2017-10-18] MEDS: Pantoprazole 40 mg EC Tab PO SCH (08:43)
[2017-10-18] MEDS ORDERED: Oxycodone/Acetaminophen 5/325 mg Tab PO PRN ×2 (14:05)
--- NOTE | 2017-10-18 14:17 | CP.PCM.PN ---
Subjective - Date & Time of Evaluation Date of Evaluation: 10/18/17 Time of Evaluation: 10:00 - Subjective Subjective: Patient seen and examined. Is complaining of ongoing pain. No other complaints at present. Objective - Vital Signs/Intake and Output Vital Signs (last 24 hours): Temp Pulse Resp BP Pulse Ox 97.6 F 77 18 116/67 97 10/18/17 08:16 10/18/17 08:16 10/18/17 08:16 10/18/17 08:16 10/18/17 08:16 - Medications Medications: Current Medications Carvedilol (Coreg) 6.25 mg PO BID [facility] Last Admin: 10/18/17 08:41 Dose: 6.25 mg Docusate Sodium (Colace) 100 mg PO BID [facility] Last Admin: 10/18/17 08:42 Dose: 100 mg Home Med (Lapatinib Ditosylate [Tykerb]) 750 mg PO DAILY [facility] Hydrochlorothiazide (Hydrodiuril) 25 mg PO DAILY [facility] Last Admin: 10/18/17 08:42 Dose: 25 mg Hydromorphone HCl (Dilaudid) 0.5 mg IVP Q4 PRN PRN Reason: Pain, severe (8-10) Lorazepam (Ativan) 0.5 mg IVP Q6 PRN PRN Reason: Anxiety Oxycodone/Acetaminophen (Percocet 5/325 Mg Tab) 1 tab PO Q4 PRN PRN Reason: Pain, Mild (1-3) Stop: 10/19/17 07:46 Oxycodone/Acetaminophen (Percocet 5/325 Mg Tab) 2 tab PO Q4 PRN PRN Reason: Pain, moderate (4-7) Stop: 10/21/17 14:06 Pantoprazole Sodium (Protonix Ec Tab) 40 mg PO DAILY [facility] Last Admin: 10/18/17 08:43 Dose: 40 mg Valsartan (Diovan) 320 mg PO DAILY [facility] Last Admin: 10/18/17 08:42 Dose: 320 mg - Labs Labs: 10/16/17 05:20 10/16/17 05:20 PT 15.3 Seconds (9.8-13.1) H 10/15/17 17:39 INR 1.4 (0.9-1.2) H 10/15/17 17:39 APTT 26.8 Seconds (25.6-37.1) 10/15/17 17:39 - Additional Findings Additional findings: Physical exam: Constitutional- cooperative, drowsy but easily arousable Head- NCAT, PERRL 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 Right eye reactive to light ENT- normal exam, MMM. Neck- normal inspection, supple, no JVD Respiratory- CTAB, no wheezes rales rhonchi Cardiovascular- RRR, +S1, +S2 no MRG GI/Abdominal- normal bowel sounds, soft, no mass, no hsm Skin- warm, dry Extremities Exam- normal capillary refill, normal inspection Neurological Exam- alert, awake, oriented Psych- normal mood, normal affect Assessment and Plan - Assessment and Plan (Free Text) Plan: 56 yo female with history of HTN and 8 year history of bilateral breast cancer brought by family because of being debilitated and progressively weak for over 2 weeks. 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 In spite of that, patient was able to move around in her house until 2 weeks ago when she remained in bed, not eating and not taking her medications. They claimed she did not have chest pain, SOB, vomiting, diarrhea and fever. Patient was diagnosed with bilateral breast cancer 8 yrs ago and had bilateral lumpectomy, chemotherapy and radiotherapy. Sister claimed radical mastectomy was offered but patient declined. Sister and mother who are the next kin wanted her to go to hospice and request DNR. Patient choose her sister to make decision for her. 1. Metastatic Breast Cancer For inpatient hospice CT scan of head: metastatic lesions with vasogenic edema, no change from previous Family unable to provide assistance at home; home hospice not an option at this point Social work following 2. HTN BP stable on Valsartan and Coreg 3. DVT prophylaxis venodyne boots while in bed
[2017-10-19] MEDS: Pantoprazole 40 mg EC Tab PO SCH (13:09)
--- NOTE | 2017-10-19 15:40 | CP.PCM.PN ---
Subjective - Date & Time of Evaluation Date of Evaluation: 10/19/17 Time of Evaluation: 11:00 - Subjective Subjective: Patient seen and examined at bedside. Pain is more controlled today with the adjusted medicine regimen. No new c/o. Declining to eat today as per nursing staff. Objective - Vital Signs/Intake and Output Vital Signs (last 24 hours): Temp Pulse Resp BP Pulse Ox 98.5 F 80 18 132/96 H 99 10/19/17 00:36 10/19/17 00:36 10/19/17 00:36 10/19/17 00:36 10/19/17 00:36 - Medications Medications: Current Medications Carvedilol (Coreg) 6.25 mg PO BID [facility] Last Admin: 10/19/17 13:08 Dose: Not Given Docusate Sodium (Colace) 100 mg PO BID [facility] Last Admin: 10/19/17 13:08 Dose: Not Given Home Med (Lapatinib Ditosylate [Tykerb]) 750 mg PO DAILY [facility] Hydrochlorothiazide (Hydrodiuril) 25 mg PO DAILY [facility] Last Admin: 10/19/17 13:08 Dose: Not Given Hydromorphone HCl (Dilaudid) 0.5 mg IVP Q4 PRN PRN Reason: Pain, severe (8-10) Lorazepam (Ativan) 0.5 mg IVP Q6 PRN PRN Reason: Anxiety Oxycodone/Acetaminophen (Percocet 5/325 Mg Tab) 2 tab PO Q4 PRN PRN Reason: Pain, moderate (4-7) Stop: 10/21/17 14:06 Pantoprazole Sodium (Protonix Ec Tab) 40 mg PO DAILY [facility] Last Admin: 10/19/17 13:09 Dose: Not Given Valsartan (Diovan) 320 mg PO DAILY [facility] Last Admin: 10/19/17 13:08 Dose: Not Given - Labs Labs: 10/16/17 05:20 10/16/17 05:20 PT 15.3 Seconds (9.8-13.1) H 10/15/17 17:39 INR 1.4 (0.9-1.2) H 10/15/17 17:39 APTT 26.8 Seconds (25.6-37.1) 10/15/17 17:39 - Additional Findings Additional findings: Physical exam: Constitutional- cooperative, drowsy but easily arousable Head- NCAT, PERRL 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 Right eye reactive to light ENT- normal exam, MMM. Neck- normal inspection, supple, no JVD Respiratory- CTAB, no wheezes rales rhonchi Cardiovascular- RRR, +S1, +S2 no MRG GI/Abdominal- normal bowel sounds, soft, no mass, no hsm Skin- warm, dry Extremities Exam- normal capillary refill, normal inspection Neurological Exam- alert, awake, oriented Psych- normal mood, normal affect Assessment and Plan - Assessment and Plan (Free Text) Plan: 56 yo female with history of HTN and 8 year history of bilateral breast cancer brought by family because of being debilitated and progressively weak for over 2 weeks. Patient had brain surgery on 08/11/17 in [facility] in [facility] in [place] because of wide spread metastasis. 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 In spite of that, patient was able to move around in her house until 2 weeks ago when she remained in bed, not eating and not taking her medications. They claimed she did not have chest pain, SOB, vomiting, diarrhea and fever. Patient was diagnosed with bilateral breast cancer 8 yrs ago and had bilateral lumpectomy, chemotherapy and radiotherapy. Sister claimed radical mastectomy was offered but patient declined. Sister and mother who are the next kin wanted her to go to hospice and request DNR. Patient choose her sister to make decision for her. 1. Metastatic Breast Cancer For inpatient hospice CT scan of head: metastatic lesions with vasogenic edema, no change from previous Family unable to provide assistance at home; home hospice not an option at this point Social work following 2. HTN BP stable on Valsartan and Coreg 3. DVT prophylaxis venodyne boots while in bed
[2017-10-20] MEDS ORDERED: Dextrose 5%/0.9% NS 1,000 ML IV SCH (09:45)
--- NOTE | 2017-10-20 11:48 | CP.PCM.PN ---
Subjective - Date & Time of Evaluation Date of Evaluation: 10/20/17 Time of Evaluation: 11:00 - Subjective Subjective: Patient was seen and examined at bedside. No new complaints. Only urinated once yesterday and eating and drinking little. Objective - Vital Signs/Intake and Output Vital Signs (last 24 hours): Temp Pulse Resp BP Pulse Ox 98.5 F 100 H 18 119/84 99 10/19/17 00:36 10/19/17 18:00 10/19/17 00:36 10/19/17 18:00 10/19/17 00:36 - Medications Medications: Current Medications Carvedilol (Coreg) 6.25 mg PO BID [facility] Last Admin: 10/20/17 08:48 Dose: Not Given Docusate Sodium (Colace) 100 mg PO BID [facility] Last Admin: 10/20/17 08:47 Dose: Not Given Hydrochlorothiazide (Hydrodiuril) 25 mg PO DAILY [facility] Last Admin: 10/20/17 08:48 Dose: Not Given Hydromorphone HCl (Dilaudid) 0.5 mg IVP Q4 PRN PRN Reason: Pain, severe (8-10) Lorazepam (Ativan) 0.5 mg IVP Q6 PRN PRN Reason: Anxiety Oxycodone/Acetaminophen (Percocet 5/325 Mg Tab) 2 tab PO Q4 PRN PRN Reason: Pain, moderate (4-7) Stop: 10/21/17 14:06 Pantoprazole Sodium (Protonix Ec Tab) 40 mg PO DAILY [facility] Last Admin: 10/19/17 13:09 Dose: Not Given Valsartan (Diovan) 320 mg PO DAILY [facility] Last Admin: 10/20/17 08:48 Dose: Not Given - Labs Labs: 10/16/17 05:20 10/16/17 05:20 PT 15.3 Seconds (9.8-13.1) H 10/15/17 17:39 INR 1.4 (0.9-1.2) H 10/15/17 17:39 APTT 26.8 Seconds (25.6-37.1) 10/15/17 17:39 - Additional Findings Additional findings: Physical exam: Constitutional- cooperative, awake, alert Head- NCAT, PERRL Eye- PERRL, EOMI ENT- normal exam, MMM. Neck- normal inspection, supple, no JVD Respiratory- CTAB, no wheezes rales rhonchi Cardiovascular- RRR, +S1, +S2 no MRG GI/Abdominal- normal bowel sounds, soft, no mass, no hsm Skin- warm, dry Extremities Exam- normal capillary refill, normal inspection Neurological Exam- alert, awake, oriented Psych- normal mood, normal affect Assessment and Plan - Assessment and Plan (Free Text) Plan: 56 yo female with history of HTN and 8 year history of bilateral breast cancer brought by family because of being debilitated and progressively weak for over 2 weeks. Patient had brain surgery on 08/11/17 in [facility] in [facility] in [place] because of wide spread metastasis. 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 In spite of that, patient was able to move around in her house until 2 weeks ago when she remained in bed, not eating and not taking her medications. They claimed she did not have chest pain, SOB, vomiting, diarrhea and fever. Patient was diagnosed with bilateral breast cancer 8 yrs ago and had bilateral lumpectomy, chemotherapy and radiotherapy. Sister claimed radical mastectomy was offered but patient declined. Sister and mother who are the next kin wanted her to go to hospice and request DNR. Patient choose her sister to make decision for her. 1. Metastatic Breast Cancer For inpatient hospice CT scan of head: metastatic lesions with vasogenic edema, no change from previous Family unable to provide assistance at home; home hospice not an option at this point Social work following 2. Clinical dehydration Will give 1 liter D5 NS today, 60 cc/hour 2. HTN BP stable on Valsartan and Coreg 3. DVT prophylaxis venodyne boots while in bed
--- NOTE | 2017-10-21 07:18 | CP.PCM.PN ---
Subjective - Date & Time of Evaluation Date of Evaluation: 10/21/17 Time of Evaluation: :18 - Subjective Subjective: pt comfortable no complaints refuses all care at this time will continue gentle fluids Objective - Vital Signs/Intake and Output Vital Signs (last 24 hours): Temp Pulse Resp BP Pulse Ox 98.5 F 86 19 124/81 95 10/21/17 00:45 10/21/17 00:45 10/21/17 00:45 10/21/17 00:45 10/21/17 00:45 Constitutional- cooperative, awake, alert Head- NCAT, PERRL Eye- PERRL, EOMI ENT- normal exam, MMM. Neck- normal inspection, supple, no JVD Respiratory- CTAB, no wheezes rales rhonchi Cardiovascular- RRR, +S1, +S2 no MRG GI/Abdominal- normal bowel sounds, soft, no mass, no hsm Skin- warm, dry Extremities Exam- normal capillary refill, normal inspection Neurological Exam- alert, awake, oriented Psych- normal mood, normal affect - Medications Medications: Current Medications Carvedilol (Coreg) 6.25 mg PO BID [facility] Last Admin: 10/20/17 08:48 Dose: Not Given Docusate Sodium (Colace) 100 mg PO BID [facility] Last Admin: 10/20/17 08:47 Dose: Not Given Hydrochlorothiazide (Hydrodiuril) 25 mg PO DAILY [facility] Last Admin: 10/20/17 08:48 Dose: Not Given Hydromorphone HCl (Dilaudid) 0.5 mg IVP Q4 PRN PRN Reason: Pain, severe (8-10) Lorazepam (Ativan) 0.5 mg IVP Q6 PRN PRN Reason: Anxiety Oxycodone/Acetaminophen (Percocet 5/325 Mg Tab) 2 tab PO Q4 PRN PRN Reason: Pain, moderate (4-7) Stop: 10/21/17 14:06 Pantoprazole Sodium (Protonix Ec Tab) 40 mg PO DAILY [facility] Last Admin: 10/19/17 13:09 Dose: Not Given Valsartan (Diovan) 320 mg PO DAILY [facility] Last Admin: 10/20/17 08:48 Dose: Not Given - Labs Labs: 10/16/17 05:20 10/16/17 05:20 PT 15.3 Seconds (9.8-13.1) H 10/15/17 17:39 INR 1.4 (0.9-1.2) H 10/15/17 17:39 APTT 26.8 Seconds (25.6-37.1) 10/15/17 17:39 Assessment and Plan - Assessment and Plan (Free Text) Plan: 56 yo female with history of HTN and 8 year history of bilateral breast cancer brought by family because of being debilitated and progressively weak for over 2 weeks. Patient had brain surgery on 08/11/17 in [facility] in [facility] in [place] because of wide spread metastasis. 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 In spite of that, patient was able to move around in her house until 2 weeks ago when she remained in bed, not eating and not taking her medications. They claimed she did not have chest pain, SOB, vomiting, diarrhea and fever. Patient was diagnosed with bilateral breast cancer 8 yrs ago and had bilateral lumpectomy, chemotherapy and radiotherapy. Sister claimed radical mastectomy was offered but patient declined. Sister and mother who are the next kin wanted her to go to hospice and request DNR. Patient choose her sister to make decision for her. no new changes today 1. Metastatic Breast Cancer For inpatient hospice CT scan of head: metastatic lesions with vasogenic edema, no change from previous Family unable to provide assistance at home; home hospice not an option at this point Social work following 2. Clinical dehydration Will give 1 liter D5 NS today, 60 cc/hour 2. HTN BP stable on Valsartan and Coreg 3. DVT prophylaxis venodyne boots while in bed
[2017-10-21] MEDS: Pantoprazole 40 mg EC Tab PO SCH (11:31)
[2017-10-22] MEDS: Pantoprazole 40 mg EC Tab PO SCH (09:16)
--- NOTE | 2017-10-22 11:11 | CP.PCM.PN ---
Subjective - Date & Time of Evaluation Date of Evaluation: 10/22/17 Time of Evaluation: 11:09 - Subjective Subjective: pt refusing meds however no complaints denies cp/sob/calf tenderness hd stable nad Objective - Vital Signs/Intake and Output Vital Signs (last 24 hours): Temp Pulse Resp BP Pulse Ox 98.1 F 109 H 19 114/90 99 10/22/17 08:06 10/22/17 08:06 10/22/17 08:06 10/22/17 08:06 10/22/17 08:06 Constitutional- cooperative, awake, alert Head- NCAT, PERRL Eye- PERRL, EOMI ENT- normal exam, MMM. Neck- normal inspection, supple, no JVD Respiratory- CTAB, no wheezes rales rhonchi Cardiovascular- RRR, +S1, +S2 no MRG GI/Abdominal- normal bowel sounds, soft, no mass, no hsm Skin- warm, dry Extremities Exam- normal capillary refill, normal inspection Neurological Exam- alert, awake Psych- normal mood, normal affect - Medications Medications: Current Medications Carvedilol (Coreg) 6.25 mg PO BID [facility] Last Admin: 10/22/17 09:16 Dose: Not Given Docusate Sodium (Colace) 100 mg PO BID [facility] Last Admin: 10/22/17 09:16 Dose: Not Given Hydrochlorothiazide (Hydrodiuril) 25 mg PO DAILY [facility] Last Admin: 10/22/17 09:16 Dose: Not Given Hydromorphone HCl (Dilaudid) 0.5 mg IVP Q4 PRN PRN Reason: Pain, severe (8-10) Dextrose/Sodium Chloride (Dextrose 5%-0.9% Ns 500 Ml) 500 mls @ 60 mls/hr IV .Q8H20M [facility] Stop: 10/22/17 22:06 Last Admin: 10/22/17 05:30 Dose: 60 mls/hr Lorazepam (Ativan) 0.5 mg IVP Q6 PRN PRN Reason: Anxiety Pantoprazole Sodium (Protonix Ec Tab) 40 mg PO DAILY [facility] Last Admin: 10/22/17 09:16 Dose: Not Given Valsartan (Diovan) 320 mg PO DAILY [facility] Last Admin: 10/22/17 09:16 Dose: Not Given - Labs Labs: 10/16/17 05:20 10/16/17 05:20 PT 15.3 Seconds (9.8-13.1) H 10/15/17 17:39 INR 1.4 (0.9-1.2) H 10/15/17 17:39 APTT 26.8 Seconds (25.6-37.1) 10/15/17 17:39 Assessment and Plan - Assessment and Plan (Free Text) Plan: 56 yo female with history of HTN and 8 year history of bilateral breast cancer brought by family because of being debilitated and progressively weak for over 2 weeks. Patient had brain surgery on 08/11/17 in [facility] in [facility] in [place] because of wide spread metastasis. 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 In spite of that, patient was able to move around in her house until 2 weeks ago when she remained in bed, not eating and not taking her medications. They claimed she did not have chest pain, SOB, vomiting, diarrhea and fever. Patient was diagnosed with bilateral breast cancer 8 yrs ago and had bilateral lumpectomy, chemotherapy and radiotherapy. Sister claimed radical mastectomy was offered but patient declined. Sister and mother who are the next kin wanted her to go to hospice and request DNR. Patient choose her sister to make decision for her. no new changes today, pt denied Hospice. Will discuss with Case Management tomorrow. 1. Metastatic Breast Cancer For inpatient hospice CT scan of head: metastatic lesions with vasogenic edema, no change from previous Family unable to provide assistance at home; home hospice not an option at this point Social work following 2. Clinical dehydration Will give 1 liter D5 NS today, 60 cc/hour pt refusing 2. HTN BP stable on Valsartan and Coreg 3. DVT prophylaxis venodyne boots while in bed
[2017-10-22] MEDS ORDERED: Simethicone 80 mg Chewtab PO PRN (14:29)
--- NOTE | 2017-10-23 08:17 | CP.PCM.PN ---
Subjective - Date & Time of Evaluation Date of Evaluation: 10/23/17 Time of Evaluation: 08:17 - Subjective Subjective: pt refusing to eat also refusing meds iv reinserted for fluids hd stable nad Objective - Vital Signs/Intake and Output Vital Signs (last 24 hours): Temp Pulse Resp BP Pulse Ox 97.8 F 86 18 108/68 97 10/23/17 00:00 10/23/17 00:00 10/23/17 00:00 10/23/17 00:00 10/23/17 00:00 Vitals Reviewed GEN: WDWN, alert, cooperative HEENT: NCAT, PERRL, EOMI HEART: RRR, +S1S2, NO MRG LUNG: CTAB, NO WRR ABD: soft, NT, ND, No HSM, No masses EXT: normal pedal pulses, normal capillary refill NEURO: awake, alert, no focal deficits SKIN: warm, dry PSYCH: normal mood, normal affect - Medications Medications: Current Medications Acetaminophen (Tylenol 325mg Tab) 650 mg PO Q4 PRN PRN Reason: Pain, moderate (4-7) Carvedilol (Coreg) 6.25 mg PO BID [facility] Last Admin: 10/22/17 17:16 Dose: Not Given Docusate Sodium (Colace) 100 mg PO BID [facility] Last Admin: 10/22/17 17:16 Dose: Not Given Hydrochlorothiazide (Hydrodiuril) 25 mg PO DAILY [facility] Last Admin: 10/22/17 09:16 Dose: Not Given Pantoprazole Sodium (Protonix Ec Tab) 40 mg PO DAILY [facility] Last Admin: 10/22/17 09:16 Dose: Not Given Simethicone (Mylicon Chew Tab) 80 mg PO TID PRN PRN Reason: Flatulence Valsartan (Diovan) 320 mg PO DAILY [facility] Last Admin: 10/22/17 09:16 Dose: Not Given - Labs Labs: 10/16/17 05:20 10/16/17 05:20 PT 15.3 Seconds (9.8-13.1) H 10/15/17 17:39 INR 1.4 (0.9-1.2) H 10/15/17 17:39 APTT 26.8 Seconds (25.6-37.1) 10/15/17 17:39 Assessment and Plan - Assessment and Plan (Free Text) Plan: 56 yo female with history of HTN and 8 year history of bilateral breast cancer brought by family because of being debilitated and progressively weak for over 2 weeks. Patient had brain surgery on 08/11/17 in [facility] in [facility] in [place] because of wide spread metastasis. 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 In spite of that, patient was able to move around in her house until 2 weeks ago when she remained in bed, not eating and not taking her medications. They claimed she did not have chest pain, SOB, vomiting, diarrhea and fever. Patient was diagnosed with bilateral breast cancer 8 yrs ago and had bilateral lumpectomy, chemotherapy and radiotherapy. Sister claimed radical mastectomy was offered but patient declined. Sister and mother who are the next kin wanted her to go to hospice and request DNR. Patient choose her sister to make decision for her. no new changes today, pt denied Hospice. Will discuss with Case Management further. 1. Metastatic Breast Cancer For inpatient hospice CT scan of head: metastatic lesions with vasogenic edema, no change from previous Family unable to provide assistance at home; home hospice not an option at this point Social work following 2. Clinical dehydration Will give 1 liter D5 NS today, 60 cc/hour pt refusing 2. HTN BP stable on Valsartan and Coreg 3. DVT prophylaxis venodyne boots while in bed
[2017-10-23] MEDS: Pantoprazole 40 mg EC Tab PO SCH (09:00)
[2017-10-23] MEDS: Potassium Chl 20mEq & D5W 1,000 ML IV SCH ×2 (13:43→23:15)
[2017-10-23] MEDS: Potassium Ch 20mEq in D5-1/2NS 1,000 ML IV SCH (14:45)
[2017-10-24] MEDS: Potassium Ch 20mEq in D5-1/2NS 1,000 ML IV SCH ×2 (07:06→11:05)
[2017-10-24] MEDS: Potassium Chl 20mEq & D5W 1,000 ML IV SCH (08:47)
--- NOTE | 2017-10-24 12:14 | CP.PCM.PN ---
Subjective - Date & Time of Evaluation Date of Evaluation: 10/24/17 Time of Evaluation: 11:30 - Subjective Subjective: afebrile uncooperative refuses to eat nor take her meds does not answer questions Objective - Vital Signs/Intake and Output Vital Signs (last 24 hours): Temp Pulse Resp BP Pulse Ox 97.8 F 71 18 143/85 93 L 10/24/17 08:31 10/24/17 08:31 10/24/17 08:31 10/24/17 08:31 10/24/17 08:31 - Medications Medications: Current Medications Acetaminophen (Tylenol 325mg Tab) 650 mg PO Q4 PRN PRN Reason: Pain, moderate (4-7) Carvedilol (Coreg) 6.25 mg PO BID [facility] Last Admin: 10/24/17 08:46 Dose: Not Given Docusate Sodium (Colace) 100 mg PO BID [facility] Last Admin: 10/24/17 08:46 Dose: Not Given Hydrochlorothiazide (Hydrodiuril) 25 mg PO DAILY [facility] Last Admin: 10/24/17 08:46 Dose: Not Given Potassium Chloride/Dextrose (Potassium Chl 20 Meq In D5w) 1,000 mls @ 100 mls/ hr IV .Q10H [facility] Last Admin: 10/24/17 08:47 Dose: Not Given Potassium Chloride/Dextrose/Sod Cl (Potassium Chl 20 Meq In D5-1/2ns) 1,000 mls @ 100 mls/hr IV .Q10H [facility] Stop: 10/24/17 14:46 Last Admin: 10/24/17 07:06 Dose: 100 mls/hr Ondansetron HCl (Zofran Inj) 4 mg IVP Q4 PRN PRN Reason: Nausea/Vomiting Last Admin: 10/23/17 22:35 Dose: 4 mg Pantoprazole Sodium (Protonix Inj) 40 mg IVP DAILY [facility] Last Admin: 10/24/17 08:48 Dose: 40 mg Simethicone (Mylicon Chew Tab) 80 mg PO TID PRN PRN Reason: Flatulence Valsartan (Diovan) 320 mg PO DAILY [facility] Last Admin: 10/24/17 08:46 Dose: Not Given - Labs Labs: 10/16/17 05:20 10/16/17 05:20 PT 15.3 Seconds (9.8-13.1) H 10/15/17 17:39 INR 1.4 (0.9-1.2) H 10/15/17 17:39 APTT 26.8 Seconds (25.6-37.1) 10/15/17 17:39 - Constitutional Appears: Older Than Stated Age, Chronically Ill, Other (uncooperative) - Head Exam Head Exam: NORMAL INSPECTION, NORMOCEPHALIC - Eye Exam Additional comments: keeps eyes closed , refuses to be examined - ENT Exam ENT Exam: Mucous Membranes Dry - Neck Exam Neck Exam: absent: Meningismus - Respiratory Exam Respiratory Exam: NORMAL BREATHING PATTERN. absent: Respiratory Distress - Cardiovascular Exam Cardiovascular Exam: REGULAR RHYTHM, +S1, +S2 - GI/Abdominal Exam GI & Abdominal Exam: Soft. absent: Tenderness - Extremities Exam Extremities Exam: Normal Capillary Refill. absent: Calf Tenderness - Back Exam Back Exam: absent: CVA tenderness (L), CVA tenderness (R) - Neurological Exam Additional comments: lethargic , turns to her side uncooperative - Psychiatric Exam Psychiatric exam: Flat Affect - Skin Skin Exam: Dry, Normal Color, Warm Assessment and Plan - Assessment and Plan (Free Text) Assessment: 56 yo female with history of HTN and 8 year history of bilateral breast cancer brought by family because of being debilitated and progressively weak for over 2 weeks. Patient had brain surgery on 08/11/17 in [facility] in [place] because of wide spread metastasis. 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 In spite of that, patient was able to move around in her house until 2 weeks ago when she remained in bed, not eating and not taking her medications. They claimed she did not have chest pain, SOB, vomiting, diarrhea and fever. Patient was diagnosed with bilateral breast cancer 8 yrs ago and had bilateral lumpectomy, chemotherapy and radiotherapy. Sister claimed radical mastectomy was offered but patient declined. Sister and mother who are the next kin wanted her to go to hospice and request DNR. Patient choose her sister to make decision for her.( Surrogate Decision maker ) Pt lives alone and has no one to take cre of her so Home Hospice is not an option. Will refer pt for [facility] ( [facility] working on getting pt to [facility]) 1. Metastatic Breast Cancer poor prognosis awaiting [facility] Hosp[facility] placement - evauated by Hospice team CT scan of head: metastatic lesions with vasogenic edema, no change from previous Family unable to provide assistance at home; home hospice not an option at this point Social work following start Pain mgt with Morphine IV , Ativan prn for anxiety 2. Clinical dehydration IVF hydration Pt refuses to eat nor take her meds 3. HTN BP stable on Cozaar and Coreg 4. Thrombocytopenia chronic prob sec to CA ? BM infilt, meds Platelet 40 DVT prophylaxis venodyne boots while in bed no anticoag due to low platelet
[2017-10-24] MEDS ORDERED: levETIRAcetam 1,000 MG in Sodium Chloride 0.9% 100 ML IVPB ONE (22:58)
[2017-10-24 23:17] LABS: BASO # 0.1 K/uL (0.0-0.2); EOS % 0.4 % (0.0-4.0); HEMOGLOBIN 14.3 g/dL (12.0-16.0); LYMPH # 2.3 K/uL (1.0-4.3); LYMPH % 23.2 % (20.0-40.0); MEAN CORPUSCULAR HGB CONC 34.1 g/dL (33.0-37.0); MEAN PLATELET VOLUME 10.6 fl (7.2-11.7); MONO # 0.9 K/uL (0.0-0.8); MONO % 9.5 % (0.0-10.0); NEUT # 6.4 K/uL (1.8-7.0); NEUT % 65.9 % (50.0-75.0); NRBC % 0.1 % (0.0-0.0); RBC 4.75 Mil/uL (3.80-5.20); RED CELL DISTRIBUTION WIDTH 14.2 % (11.5-14.5); WHITE BLOOD COUNT 9.7 K/uL (4.8-10.8)
[2017-10-24 23:26] LABS: ALB/GLOB RATIO 1.3 (1.0-2.1); ALBUMIN 3.8 g/dL (3.5-5.0); ALT/SGPT 66 U/L (9-52); AST/SGOT 71 U/L (14-36); BLOOD UREA NITROGEN 9 mg/dl (7-17); CALCIUM 9.4 mg/dL (8.4-10.2); GFR AFRICAN-AMERICAN > 60; GFR NON-AFRICAN AMERICAN > 60
--- NOTE | 2017-10-24 23:30 | PCM.RRT ---
<Rupali Vitale - Last Filed: 10/24/17 23:31> I.Reason for PLANE TENDER - A) Acute Change in Patient: Subjective: PLANE TENDER: Nichelle Stephen 1960 PLANE TENDER Time: 10:21pm PLANE TENDER Location: [address] [place] [address] [id number] PLANE TENDER Arrival: 10:24pm PLANE TENDER Reason: AMS/Seizure Patient is DNR/DNI, Hx of brain mets due to breast carcinoma S: Patient was lying in bed and the nurse heard her snoring earlier then saw she was seizing. O: PLANE TENDER Vitals: BP: 106/78 HR:133 O2Sat 98% on 2L General: Patient lethargic lying in bed, Not Alert or Oriented, positioned with face to the right, visibly seizing HEENT: NCAT, scleral icterus, dry mouth Cardiac: RRR, +S1S2, no murmurs, rubs or gallops Resp: CTA B/L, no wheezes, rales or rhonchi Abdo: +BS, soft non tender Extrem: Patient is holding her right thumb in her fist PLANE TENDER intervention: -Gave 2mg Ativan IM, then 2mg Ativan IV -Ordered CBC, CMP, MG, Phos, fluids -Glucose check 126 -Keppra 1000mg Bolus A/P: 56 yo F with AMS/Seizure likely due to brain mets from previously diagnosed Metastatic breast carcinoma PLANE TENDER Outcome: Patient stopped seizing Transfer to ICU with Ativan 2mg Q2hr prn, and Keppra BID Monitor seizure Continue Hospice talk with family PLANE TENDER vitals:BP 149/93, HR:67, RR: 21, SpO2: 100% on 2L PLANE TENDER end: 11:05pm PLANE TENDER Leader:Dr. Constantine Stanley PLANE TENDER residents: Adarsh Tovar PGY-3 Rupali Vitale PGY-1 <Jaden Fitch A - Last Filed: 10/25/17 03:51> PLANE TENDER Nurse Assessment - Vital Signs Vital Signs: Rapid Response Vital Sign Blood Pressure 134/112 Pulse Rate 126 Respiratory Rate 24 Temperature 97.9 F Oxygen Saturation 100 - Vital Signs at end of PLANE TENDER Vital Signs at end of PLANE TENDER: Rapid Response End Vital Sign Blood Pressure 146/93 Pulse Rate 75 Respiratory Rate 20 Temperature 97.8 F O2 Sat by Pulse Oximetry 100 Attending/Attestation - Attestation I have personally seen and examined this patient.: Yes I have fully participated in the care of the patient.: Yes I have reviewed all pertinent clinical information, including history, physical exam and plan: Yes Notes (Text): 10/25/17 03:45 I Saw and examined this patient shoulder to shoulder with Dr Vitale. The assessment and plan represent my direct input. A&P: #. Seizure associated to the Brain mets - Ativan total of 4mg given - load patient with Keppra 1gm IV - Transfer to ICU for closer monitoring Jaden Fitch MD
[2017-10-24] MEDS ORDERED: Dextrose 5%/0.45% NS 1,000 ML IV SCH (23:45)
[2017-10-25] MEDS: Potassium Chloride 20 mEq 100 ML IVPB SCH ×2 (00:18→02:18)
--- NOTE | 2017-10-25 03:51 | CP.CCUPN ---
CCU Subjective - Physician Review Subjective (Free Text): 10/25/17 03:52 Attending: Hospitalist Chief Complaint: Seizure The Patient was seen and examined on the MedSurg Unit HPI: This hx was obtained after review of the medical records. She is a 56 years old female with hx of Metastatic Breast Cancer to the liver and Brain, and among her medication was Keppra. She was being followed at the [facility] where Hospice care was recommended on 09/10/17. The patient was lost in follow up as per the center. She was admitted at [facility] on 10/15/17 with worsening weakness to the right side of the body and not taking Keppra. The is DNR/DNI. Discussion is on going about Hospice management. Rapid Response Team was called because of a witnessed generalized seizure. Ativan was given initially but she began having signs of repeated seizure and Ativan was again given. At this time the patient is being transferred to the ICU for close management of the Seizure. PMH: HTN; Breast Cancer with Mets to liver and Brain; Right upper and lower extremity weakness; PSH: None noted. Patient refused Masectomy and the [facility] SH: no illegal drug use; Never smoked; Live with family FH: No Family Hx noted Allergies: NKDA Medication: Reviewed Review of systems: Limited as the patient is post ictal Exam: General: Sedated from the Ativan Resp: Mild rhonchi, no rales nor wheezes CVS: S1 S2 RRR ABD: Full and Soft, +ve bowel sounds Ext: no edema Neuro: Sedated/post ictal A&P #. Seizure associated with the Brain mets - Transfer to ICU for close monitoring of seizure - Keppra 1g loading - Keppra 500mg Q12 #. Metastatic Breast Cancer to liver and Brain - Hospice care recommended by [facility] #. HTN - Continue Present treatment #. DVT Prophylaxis with SCD #. Code Status: DNI/DNR Attempt is being made to get Hospice involved Discussion is going on with the Family who referred that they are not able to manage the patient at home even with Hospice at home. Social service is on the case. Consideration should be made for an Inpatient Hospice Facility if possible. Jaden Fitch MD. CCU Objective - Vital Signs / Intake & Output Vital Signs (Last 4 hours): Vital Signs Temp Pulse Resp BP Pulse Ox 10/25/17 00:00 98.3 F 90 25 H 145/107 H 99 Intake and Output (Last 8hrs): Intake & Output 10/24/17 10/24/17 10/25/17 14:59 22:59 06:59 Intake Total 100 Balance 100 Intake: Intake, Piggyback 100 - Medications Active Medications: Active Medications Generic Name Dose Route Start Last Admin Trade Name Freq PRN Reason Stop Dose Admin Acetaminophen 650 mg 10/22/17 14:27 Tylenol 325mg Tab PO Q4 PRN Pain, moderate (4-7) Carvedilol 6.25 mg 10/16/17 09:00 10/24/17 17:04 Coreg PO Not Given BID [facility] Docusate Sodium 100 mg 10/16/17 09:00 10/24/17 17:04 Colace PO Not Given BID [facility] Hydrochlorothiazide 25 mg 10/16/17 09:00 10/24/17 08:46 Hydrodiuril PO Not Given DAILY [facility] Potassium Chloride/Dextrose 1,000 mls @ 100 mls/hr 10/23/17 13:15 10/24/17 08 :47 Potassium Chl 20 Meq In D5w IV Not Given .Q10H [facility] Potassium Chloride 100 mls @ 50 mls/hr 10/25/17 00:00 10/25/17 02:18 Potassium Chloride 20 Meq/100 Ml IVPB 10/25/17 03:59 50 mls/hr Q2 [facility] Administration Dextrose/Sodium Chloride 1,000 mls @ 100 mls/hr 10/24/17 23:45 10/25/17 00:15 Dextrose 5%/0.45% Ns 1000 Ml IV 10/25/17 23:56 100 mls/hr .Q10H [facility] Administration Lorazepam 0.5 mg 10/24/17 12:50 10/24/17 13:20 Ativan IVP 0.5 mg Q6 PRN Administration Anxiety Lorazepam 2 mg 10/24/17 22:56 Ativan IVP Q2 PRN Seizure activity Losartan Potassium 100 mg 10/25/17 09:00 Cozaar PO DAILY [facility] Morphine Sulfate 2 mg 10/24/17 12:52 Morphine IVP Q4 PRN Pain, moderate (4-7) Ondansetron HCl 4 mg 10/23/17 22:20 10/23/17 22:35 Zofran Inj IVP 4 mg Q4 PRN Administration Nausea/Vomiting Pantoprazole Sodium 40 mg 10/23/17 13:00 10/24/17 08:48 Protonix Inj IVP 40 mg DAILY [facility] Administration Simethicone 80 mg 10/22/17 14:29 Mylicon Chew Tab PO TID PRN Flatulence - Patient Studies Lab Studies: Lab Studies 10/24/17 10/24/17 Range/Units 22:45 22:45 WBC 9.7 (4.8-10.8) K/uL RBC 4.75 (3.80-5.20) Mil/uL Hgb 14.3 (12.0-16.0) g/dL Hct 41.8 (34.0-47.0) % MCV 88.0 D (81.0-99.0) fl MCH 30.0 (27.0-31.0) pg MCHC 34.1 (33.0-37.0) g/dL RDW 14.2 (11.5-14.5) % Plt Count 78 L D (130-400) K/uL MPV 10.6 (7.2-11.7) fl Neut % (Auto) 65.9 (50.0-75.0) % Lymph % (Auto) 23.2 (20.0-40.0) % Wagoner % (Auto) 9.5 (0.0-10.0) % Eos % (Auto) 0.4 (0.0-4.0) % Baso % (Auto) 1.0 (0.0-2.0) % Neut # (Auto) 6.4 (1.8-7.0) K/uL Lymph # (Auto) 2.3 (1.0-4.3) K/uL Wagoner # (Auto) 0.9 H (0.0-0.8) K/uL Eos # (Auto) 0.0 (0.0-0.7) K/uL Baso # (Auto) 0.1 (0.0-0.2) K/uL Sodium 146 (132-148) mmol/l Potassium 2.8 L (3.6-5.0) MMOL/L Chloride 112 H (98-107) mmol/L Carbon Dioxide 24 (22-30) mmol/L Anion Gap 13 (10-20) BUN 9 (7-17) mg/dl Creatinine 0.6 L (0.7-1.2) mg/dl Est GFR ( Amer) > 60 Est GFR (Non-Af Amer) > 60 Random Glucose 130 H (65-105) mg/dL Calcium 9.4 (8.4-10.2) mg/dL Phosphorus 3.2 (2.5-4.5) mg/dl Magnesium 1.7 (1.6-2.3) MG/DL Total Bilirubin 2.0 H (0.2-1.3) mg/dl AST 71 H (14-36) U/L ALT 66 H D (9-52) U/L Alkaline Phosphatase 113 (38-126) U/L Total Protein 6.8 (6.3-8.2) G/DL Albumin 3.8 (3.5-5.0) g/dL Globulin 3.0 (2.2-3.9) gm/dL Albumin/Globulin Ratio 1.3 (1.0-2.1) Laboratory Results - last 24 hr 10/24/17 10/24/17 22:45 22:45 WBC 9.7 RBC 4.75 Hgb 14.3 Hct 41.8 MCV 88.0 D MCH 30.0 MCHC 34.1 RDW 14.2 Plt Count 78 L D MPV 10.6 Neut % (Auto) 65.9 Lymph % (Auto) 23.2 Wagoner % (Auto) 9.5 Eos % (Auto) 0.4 Baso % (Auto) 1.0 Neut # (Auto) 6.4 Lymph # (Auto) 2.3 Wagoner # (Auto) 0.9 H Eos # (Auto) 0.0 Baso # (Auto) 0.1 Sodium 146 Potassium 2.8 L Chloride 112 H Carbon Dioxide 24 Anion Gap 13 BUN 9 Creatinine 0.6 L Est GFR ( Amer) > 60 Est GFR (Non-Af Amer) > 60 Random Glucose 130 H Calcium 9.4 Phosphorus 3.2 Magnesium 1.7 Total Bilirubin 2.0 H AST 71 H ALT 66 H D Alkaline Phosphatase 113 Total Protein 6.8 Albumin 3.8 Globulin 3.0 Albumin/Globulin Ratio 1.3 Fingerstick Blood Sugar Results: 125 Critical Care Progress Note - Nutrition Nutrition: Nutrition Category Date Time Status Regular Diet [DIET] Diets 10/15/17 Breakfast Active Assessment/Plan - Date & Time Date: 10/25/17 Time: 03:51
[2017-10-25 07:13] LABS: HEMOGLOBIN 14.3 g/dL (12.0-16.0); MEAN CELL VOLUME 88.8 fl (81.0-99.0); MEAN CORPUSCULAR HEMOGLOBIN 29.5 pg (27.0-31.0); MEAN CORPUSCULAR HGB CONC 33.2 g/dL (33.0-37.0); RBC 4.83 Mil/uL (3.80-5.20); RED CELL DISTRIBUTION WIDTH 14.8 % (11.5-14.5); WHITE BLOOD COUNT 9.9 K/uL (4.8-10.8)
[2017-10-25 07:24] LABS: BLOOD UREA NITROGEN 8 mg/dl (7-17); CALCIUM 9.3 mg/dL (8.4-10.2); GFR AFRICAN-AMERICAN > 60; GFR NON-AFRICAN AMERICAN > 60
[2017-10-25] MEDS: Potassium Ch 20mEq in D5-1/2NS 1,000 ML IV SCH ×2 (10:20→21:28)
[2017-10-25] MEDS: levETIRAcetam 500 MG in Sodium Chloride 0.9% 100 ML IVPB SCH ×2 (10:22→21:28)
--- NOTE | 2017-10-25 13:05 | CP.PCM.PN ---
Subjective - Date & Time of Evaluation Date of Evaluation: 10/25/17 Time of Evaluation: 11:30 - Subjective Subjective: Pt had an [employer] for seizure last night and was transferred to ICU She was loaded with Keppra IV Afebrile lethargic Sister at bedside -Family still wants Hospice and want pt to be comfortable SW contacted Hospice team to re-eval pt Objective - Vital Signs/Intake and Output Vital Signs (last 24 hours): Temp Pulse Resp BP Pulse Ox 98.8 F 100 H 23 119/94 H 98 10/25/17 08:00 10/25/17 10:23 10/25/17 08:00 10/25/17 10:23 10/25/17 08:00 Intake and Output: 10/25/17 10/25/17 06:59 18:59 Intake Total 700 200 Balance 700 200 - Medications Medications: Current Medications Acetaminophen (Tylenol 325mg Tab) 650 mg PO Q4 PRN PRN Reason: Pain, moderate (4-7) Carvedilol (Coreg) 6.25 mg PO BID [facility] Last Admin: 10/25/17 10:24 Dose: Not Given Docusate Sodium (Colace) 100 mg PO BID [facility] Last Admin: 10/25/17 08:32 Dose: Not Given Hydrochlorothiazide (Hydrodiuril) 25 mg PO DAILY [facility] Last Admin: 10/24/17 08:46 Dose: Not Given Levetiracetam 500 mg/ Sodium (Chloride) 105 mls @ 210 mls/hr IVPB Q12 [facility] Last Admin: 10/25/17 10:22 Dose: 210 mls/hr Potassium Chloride/Dextrose/Sod Cl (Potassium Chl 20 Meq In D5-1/2ns) 1,000 mls @ 125 mls/hr IV .Q8H [facility] Stop: 10/26/17 09:01 Last Admin: 10/25/17 10:20 Dose: 125 mls/hr Lorazepam (Ativan) 0.5 mg IVP Q6 PRN PRN Reason: Anxiety Last Admin: 10/24/17 13:20 Dose: 0.5 mg Lorazepam (Ativan) 2 mg IVP Q2 PRN PRN Reason: Seizure activity Lorazepam (Ativan) 0.5 mg IVP Q6 [facility] Losartan Potassium (Cozaar) 100 mg PO DAILY [facility] Last Admin: 10/25/17 10:23 Dose: Not Given Morphine Sulfate (Morphine) 2 mg IVP Q4 PRN PRN Reason: Pain, moderate (4-7) Morphine Sulfate (Morphine) 2 mg IVP Q6 [facility] Ondansetron HCl (Zofran Inj) 4 mg IVP Q4 PRN PRN Reason: Nausea/Vomiting Last Admin: 10/23/17 22:35 Dose: 4 mg Pantoprazole Sodium (Protonix Inj) 40 mg IVP DAILY [facility] Last Admin: 10/25/17 08:34 Dose: 40 mg Simethicone (Mylicon Chew Tab) 80 mg PO TID PRN PRN Reason: Flatulence - Labs Labs: 10/25/17 06:45 10/25/17 06:45 PT 15.3 Seconds (9.8-13.1) H 10/15/17 17:39 INR 1.4 (0.9-1.2) H 10/15/17 17:39 APTT 26.8 Seconds (25.6-37.1) 10/15/17 17:39 - Constitutional Appears: Older Than Stated Age, Chronically Ill lethargic - Head Exam Head Exam: NORMAL INSPECTION, NORMOCEPHALIC - ENT Exam ENT Exam: Mucous Membranes Dry - Neck Exam Neck Exam: absent: Meningismus - Respiratory Exam Respiratory Exam: NORMAL BREATHING PATTERN. absent: Respiratory Distress + rhonchi - Cardiovascular Exam Cardiovascular Exam: REGULAR RHYTHM, +S1, +S2 - GI/Abdominal Exam GI & Abdominal Exam: Soft. absent: Tenderness - Extremities Exam Extremities Exam: Normal Capillary Refill. - Back Exam Back Exam: absent: CVA tenderness (L), CVA tenderness (R) - Neurological Exam Additional comments: lethargic - Skin Skin Exam: Dry, Normal Color, Warm Assessment and Plan - Assessment and Plan (Free Text) Assessment: 56 yo female with history of HTN and 8 year history of bilateral breast cancer brought by family because of being debilitated and progressively weak for over 2 weeks. Patient had brain surgery on 08/11/17 in [facility] in [place] because of wide spread metastasis. 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 In spite of that, patient was able to move around in her house until 2 weeks ago when she remained in bed, not eating and not taking her medications. They claimed she did not have chest pain, SOB, vomiting, diarrhea and fever. Patient was diagnosed with bilateral breast cancer 8 yrs ago and had bilateral lumpectomy, chemotherapy and radiotherapy. Sister claimed radical mastectomy was offered but patient declined. Sister and mother who are the next kin wanted her to go to hospice and request DNR. Patient choose her sister to make decision for her.( Surrogate Decision maker ) Pt lives alone and has no one to take care of her so Home Hospice is not an option. Referred pt for [facility] ( [facility] working on getting pt to [place]). Hospice Team again reconsulted to re-eval pt if she now qualifies for In patient Hospice 10/24: [employer] for seizure 1. Metastatic Breast Cancer poor prognosis awaiting [facility] Hosp[facility] placement - evaluated by Hospice team CT scan of head: metastatic lesions with vasogenic edema, no change from previous Family unable to provide assistance at home; home hospice not an option at this point Social work following Pain mgt with Morphine IV , Ativan for anxiety 2. Seizure sec to Brain Mets transferred to ICU started on IV Keppra 3. Dehydration IVF hydration Pt refuses to eat nor take her meds 4. HTN BP low 4. Thrombocytopenia chronic prob sec to CA ? BM infilt, meds Platelet 84 no bleeding at present DVT prophylaxis venodyne boots while in bed no anticoag due to low platelet
[2017-10-26] MEDS: Potassium Ch 20mEq in D5-1/2NS 1,000 ML IV SCH (05:53)
[2017-10-26] MEDS: levETIRAcetam 500 MG in Sodium Chloride 0.9% 100 ML IVPB SCH (08:25)
[2017-10-26] MEDS ORDERED: Hyoscyamine 0.125 mg SL Tab SL PRN (08:42)
--- NOTE | 2017-10-26 08:44 | CP.PCM.PN ---
Subjective - Date & Time of Evaluation Date of Evaluation: 10/26/17 Time of Evaluation: 08:00 Objective - Vital Signs/Intake and Output Vital Signs (last 24 hours): Temp Pulse Resp BP Pulse Ox 98.8 F 73 17 109/83 94 L 10/26/17 08:00 10/26/17 06:00 10/26/17 06:00 10/26/17 06:00 10/26/17 06:00 Intake and Output: 10/26/17 10/26/17 06:59 18:59 Intake Total 1605 200 Balance 1605 200 - Medications Medications: Current Medications Acetaminophen (Tylenol 325mg Tab) 650 mg PO Q4 PRN PRN Reason: Pain, moderate (4-7) Carvedilol (Coreg) 6.25 mg PO BID [facility] Last Admin: 10/26/17 08:31 Dose: Not Given Docusate Sodium (Colace) 100 mg PO BID [facility] Last Admin: 10/26/17 08:31 Dose: Not Given Hydrochlorothiazide (Hydrodiuril) 25 mg PO DAILY [facility] Last Admin: 10/24/17 08:46 Dose: Not Given Hyoscyamine (Levsin) 0.125 mg SL Q4 PRN PRN Reason: GI distress Levetiracetam 500 mg/ Sodium (Chloride) 105 mls @ 210 mls/hr IVPB Q12 [facility] Last Admin: 10/26/17 08:25 Dose: 210 mls/hr Potassium Chloride/Dextrose/Sod Cl (Potassium Chl 20 Meq In D5-1/2ns) 1,000 mls @ 125 mls/hr IV .Q8H [facility] Stop: 10/26/17 09:01 Last Admin: 10/26/17 05:53 Dose: 125 mls/hr Lorazepam (Ativan) 0.5 mg IVP Q6 PRN PRN Reason: Anxiety Last Admin: 10/24/17 13:20 Dose: 0.5 mg Lorazepam (Ativan) 2 mg IVP Q2 PRN PRN Reason: Seizure activity Lorazepam (Ativan) 0.5 mg IVP Q6 [facility] Last Admin: 10/26/17 04:46 Dose: Not Given Losartan Potassium (Cozaar) 100 mg PO DAILY [facility] Last Admin: 10/26/17 08:32 Dose: Not Given Morphine Sulfate (Morphine) 2 mg IVP Q4 PRN PRN Reason: Pain, moderate (4-7) Last Admin: 10/26/17 05:04 Dose: 2 mg Morphine Sulfate (Morphine) 2 mg IVP Q6 [facility] Last Admin: 10/26/17 03:28 Dose: 2 mg Ondansetron HCl (Zofran Inj) 4 mg IVP Q4 PRN PRN Reason: Nausea/Vomiting Last Admin: 10/23/17 22:35 Dose: 4 mg Pantoprazole Sodium (Protonix Inj) 40 mg IVP DAILY [facility] Last Admin: 10/26/17 08:32 Dose: 40 mg Simethicone (Mylicon Chew Tab) 80 mg PO TID PRN PRN Reason: Flatulence - Labs Labs: 10/25/17 06:45 10/25/17 06:45 PT 15.3 Seconds (9.8-13.1) H 10/15/17 17:39 INR 1.4 (0.9-1.2) H 10/15/17 17:39 APTT 26.8 Seconds (25.6-37.1) 10/15/17 17:39 - Constitutional Appears: Older Than Stated Age, Chronically Ill lethargic - Head Exam Head Exam: NORMAL INSPECTION, NORMOCEPHALIC - ENT Exam ENT Exam: Mucous Membranes Dry - Neck Exam Neck Exam: absent: Meningismus - Respiratory Exam Respiratory Exam: + rhonchi, rales - Cardiovascular Exam Cardiovascular Exam: REGULAR RHYTHM, +S1, +S2 - GI/Abdominal Exam GI & Abdominal Exam: Soft. absent: Tenderness - Extremities Exam Extremities Exam: Normal Capillary Refill. - Back Exam Back Exam: absent: CVA tenderness (L), CVA tenderness (R) - Neurological Exam Additional comments: lethargic - Skin Skin Exam: Dry, Normal Color, Warm Assessment and Plan - Assessment and Plan (Free Text) Assessment: 56 yo female with history of HTN and 8 year history of bilateral breast cancer brought by family because of being debilitated and progressively weak for over 2 weeks. Patient had brain surgery on 08/11/17 in [facility] in [facility] in [place] because of wide spread metastasis. 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 In spite of that, patient was able to move around in her house until 2 weeks ago when she remained in bed, not eating and not taking her medications. They claimed she did not have chest pain, SOB, vomiting, diarrhea and fever. Patient was diagnosed with bilateral breast cancer 8 yrs ago and had bilateral lumpectomy, chemotherapy and radiotherapy. Sister claimed radical mastectomy was offered but patient declined. Sister and mother who are the next kin wanted her to go to hospice and request DNR. Patient choose her sister to make decision for her.( Surrogate Decision maker ) Pt lives alone and has no one to take care of her so Home Hospice is not an option. Referred pt for [facility] however pt's condition worsened while in the hospital. She had a seizure sec to brain mets. Hospice Team again reconsulted to re-eval pt if she now qualifies for In patient Hospice 1. Metastatic Breast Cancer poor prognosis awaiting [facility] Hospice placement - evaluated by Hospice team CT scan of head: metastatic lesions with vasogenic edema, no change from previous Family unable to provide assistance at home; home hospice not an option at this point Social work following Pain mgt with Morphine IV , Ativan for anxiety 2. Seizure sec to Brain Mets transferred to ICU started on IV Keppra 3. Dehydration IVF hydration Pt refuses to eat nor take her meds 4. HTN BP low 4. Thrombocytopenia chronic prob sec to CA ? BM infilt, meds Platelet 84 no bleeding at present DVT prophylaxis venodyne boots while in bed no anticoag due to low platelet
[2017-10-26] MEDS ORDERED: Morphine 100 MG in Sodium Chloride 0.9% 100 ML IV SCH (09:45)
[2017-10-26 11:17] VITALS: RESP 13
[2017-10-26 16:16] VITALS: BP 82/53; PULSE 94; TEMP 98.3; O2SAT 99
--- NOTE | 2017-10-26 16:28 | CP.PCM.DIS ---
Provider - Provider Date of Admission: 10/15/17 18:52 Attending physician: Angelo Ulloa MD Primary care physician: Dr Cornell Consults: Hospice Time Spent in preparation of Discharge (in minutes): 40 Diagnosis - Discharge Diagnosis (1) Breast cancer metastasized to brain Status: Acute (2) Seizure Status: Acute (3) Vasogenic brain edema Status: Acute Hospital Course - Lab Results Lab Results: Micro Results 10/15/17 18:10 Blood-Venous Blood Culture - Final NO GROWTH AFTER 5 DAYS 10/15/17 18:10 Blood-Venous Gram Stain - Final TEST NOT PERFORMED 10/15/17 18:10 Blood-Venous Blood Culture - Final Clostridium Perfringens 10/15/17 18:10 Blood-Venous Gram Stain - Final 10/15/17 18:10 Urine,Dee Urine Culture - Final No Growth (<1,000 CFU/ML) Most Recent Lab Values WBC 9.9 K/uL (4.8-10.8) 10/25/17 06:45 RBC 4.83 Mil/uL (3.80-5.20) 10/25/17 06:45 Hgb 14.3 g/dL (12.0-16.0) 10/25/17 06:45 Hct 42.9 % (34.0-47.0) 10/25/17 06:45 MCV 88.8 fl (81.0-99.0) 10/25/17 06:45 MCH 29.5 pg (27.0-31.0) 10/25/17 06:45 MCHC 33.2 g/dL (33.0-37.0) 10/25/17 06:45 RDW 14.8 % (11.5-14.5) H 10/25/17 06:45 Plt Count 84 K/uL (130-400) L 10/25/17 06:45 MPV 10.6 fl (7.2-11.7) 10/24/17 22:45 Neut % (Auto) 65.9 % (50.0-75.0) 10/24/17 22:45 Lymph % (Auto) 23.2 % (20.0-40.0) 10/24/17 22:45 Mccracken % (Auto) 9.5 % (0.0-10.0) 10/24/17 22:45 Eos % (Auto) 0.4 % (0.0-4.0) 10/24/17 22:45 Baso % (Auto) 1.0 % (0.0-2.0) 10/24/17 22:45 Neut # (Auto) 6.4 K/uL (1.8-7.0) 10/24/17 22:45 Lymph # (Auto) 2.3 K/uL (1.0-4.3) 10/24/17 22:45 Mccracken # (Auto) 0.9 K/uL (0.0-0.8) H 10/24/17 22:45 Eos # (Auto) 0.0 K/uL (0.0-0.7) 10/24/17 22:45 Baso # (Auto) 0.1 K/uL (0.0-0.2) 10/24/17 22:45 PT 15.3 Seconds (9.8-13.1) H 10/15/17 17:39 INR 1.4 (0.9-1.2) H 10/15/17 17:39 APTT 26.8 Seconds (25.6-37.1) 10/15/17 17:39 pO2 19 mm/Hg (30-55) L 10/15/17 17:39 VBG pH 7.44 (7.32-7.43) H 10/15/17 17:39 VBG pCO2 45 mmHg (40-60) 10/15/17 17:39 VBG HCO3 27.5 mmol/L 10/15/17 17:39 VBG Total CO2 32.0 mmol/L (22-28) H 10/15/17 17:39 VBG O2 Sat (Calc) 30.8 % (40-65) L 10/15/17 17:39 VBG Base Excess 5.6 mmol/L (0.0-2.0) H 10/15/17 17:39 VBG Potassium 3.5 mmol/L (3.6-5.2) L 10/15/17 17:39 Sodium 147.0 mmol/L (132-148) 10/15/17 17:39 Chloride 104.0 mmol/L (98-107) 10/15/17 17:39 Glucose 138 mg/dL (65-105) H 10/15/17 17:39 Lactate 3.8 mmol/L (0.7-2.1) H 10/15/17 17:39 FiO2 21.0 % 10/15/17 17:39 Crit Value Called To parveen Kat md 10/15/17 17:39 Crit Value Called By Barbara magana 10/15/17 17:39 Crit Value Read Back Y 10/15/17 17:39 Blood Gas Notified Time 1747 10/15/17 17:39 Sodium 146 mmol/l (132-148) 10/25/17 06:45 Potassium 3.2 MMOL/L (3.6-5.0) L 10/25/17 06:45 Chloride 114 mmol/L (98-107) H 10/25/17 06:45 Carbon Dioxide 23 mmol/L (22-30) 10/25/17 06:45 Anion Gap 12 (10-20) 10/25/17 06:45 BUN 8 mg/dl (7-17) 10/25/17 06:45 Creatinine 0.6 mg/dl (0.7-1.2) L 10/25/17 06:45 Est GFR ( Amer) > 60 10/25/17 06:45 Est GFR (Non-Af Amer) > 60 10/25/17 06:45 POC Glucose (mg/dL) 126 mg/dL (65-110) H 10/24/17 22:29 Random Glucose 148 mg/dL (65-105) H 10/25/17 06:45 Lactic Acid 1.8 MMOL/L (0.7-2.1) 10/15/17 23:09 Calcium 9.3 mg/dL (8.4-10.2) 10/25/17 06:45 Phosphorus 3.2 mg/dl (2.5-4.5) 10/24/17 22:45 Magnesium 1.7 MG/DL (1.6-2.3) 10/24/17 22:45 Total Bilirubin 2.0 mg/dl (0.2-1.3) H 10/24/17 22:45 AST 71 U/L (14-36) H 10/24/17 22:45 ALT 66 U/L (9-52) H D 10/24/17 22:45 Alkaline Phosphatase 113 U/L (38-126) 10/24/17 22:45 Total Protein 6.8 G/DL (6.3-8.2) 10/24/17 22:45 Albumin 3.8 g/dL (3.5-5.0) 10/24/17 22:45 Globulin 3.0 gm/dL (2.2-3.9) 10/24/17 22:45 Albumin/Globulin Ratio 1.3 (1.0-2.1) 10/24/17 22:45 Venous Blood Potassium 3.5 mmol/L (3.6-5.2) L 10/15/17 17:39 Urine Color Jyoti (YELLOW) 10/15/17 18:10 Urine Clarity Slighty-cloudy (Clear) 10/15/17 18:10 Urine pH 5.0 (5.0-8.0) 10/15/17 18:10 Ur Specific [place] 1.028 (1.003-1.030) 10/15/17 18:10 Urine Protein 30 mg/dL (NEGATIVE) 10/15/17 18:10 Urine Glucose (UA) Neg mg/dL (Normal) 10/15/17 18:10 Urine Ketones Trace mg/dL (NEGATIVE) 10/15/17 18:10 Urine Blood Small (NEGATIVE) 10/15/17 18:10 Urine Nitrate Negative (NEGATIVE) 10/15/17 18:10 Urine Bilirubin Negative (NEGATIVE) 10/15/17 18:10 Urine Urobilinogen 4.0 mg/dL (0.2-1.0) H 10/15/17 18:10 Ur Leukocyte Esterase Neg Delvin/uL (Negative) 10/15/17 18:10 Ur Squamous Epith Cells < 1 /hpf (0-5) 10/15/17 18:10 Amorphous Sediment Rare /ul (<OCC) H 10/15/17 18:10 Hyaline Casts >20 /hpf (0-2) H 10/15/17 18:10 - Hospital Course Hospital Course: 56 yo female with history of HTN and 8 years history of bilateral breast cancer brought by family because of being debilitated and progressively weak for over 2 weeks. Patient had brain surgery on 08[facility]11/[facility] in [place] because of wide spread metastasis. 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 In spite of that, patient was able to move around in her house until 2 weeks ago when she remained in bed, not eating and not taking her medications. Patient was diagnosed with bilateral breast cancer 8 yrs ago and had bilateral lumpectomy, chemotherapy and radiotherapy. Sister claimed radical mastectomy was offered but patient declined. Due to her very poor prognosis and widesptread metastases, the patient decided on Hospice Care , namimg her sister as her Surrogate decison maker . Pt lives alone and has no one to take care of her so Home Hospice is not an option, [facility]. On 10/24: IMAGING ENGINEER called for seizure and since then patient became very lethargic/obtunded despite anti -seizure medication. Hospice came to re-eval patient and accepted patient for Inpatient care. 1. Metastatic Breast Cancer very poor prognosis CT scan of head: metastatic lesions with vasogenic edema, no change from previous Pain mgt with Morphine IV , Ativan for anxiety Hospice came to re-eval pt and accepted her for Inpatient Hospice 2. Seizure sec to Brain Mets transferred to ICU started on IV Keppra 3. Dehydration IVF hydration Pt refused to eat nor take her meds 4. HTN BP low 4. Thrombocytopenia chronic prob sec to CA ? BM infilt, meds Platelet 84 no bleeding at present DVT prophylaxis venodyne boots while in bed no anticoag due to low platelet Will d/c all meds except for Morphine drip , Ativan RTC and Levsin SL. d/c to Inpatient Hospice Discharge Exam - Head Exam Head Exam: NORMAL INSPECTION, NORMOCEPHALIC - ENT Exam ENT Exam: Mucous Membranes Dry, Normal External Ear Exam - Respiratory Exam Respiratory Exam: Accessory Muscle Use, Rales, Rhonchi, Respiratory Distress - Cardiovascular Exam Cardiovascular Exam: Irregular Rhythm - GI/Abdominal Exam GI & Abdominal Exam: Soft - Neurological Exam Additional comments: lethargic - Skin Skin Exam: Dry, Normal Color Discharge Plan - Follow Up Plan Condition: SERIOUS Disposition: HOSPICE - MEDICAL FACILITY Instructions: Breast Cancer (DC), Palliative Care Additional Instructions: d/c pt to inpatient Hospice
== END 2017-10-26 16:53 | disposition hospice, inpatient (51) | DRG 54 ==
LOC: H.ER 16:39 → H.ERHOLD 18:52 → H.MEDSURG1 22:00 → H.ICU/CCU 10-24 23:27
DX: C79.31 Secondary malignant neoplasm of brain (principal); G93.6 Cerebral edema; C78.7 Secondary malignant neoplasm of liver and intrahepatic bile duct; G40.89 Other seizures; L89.322 Pressure ulcer of left buttock, stage 2; D69.59 Other secondary thrombocytopenia; E86.0 Dehydration; Z66 Do not resuscitate; Z51.5 Encounter for palliative care; I10 Essential (primary) hypertension; F41.9 Anxiety disorder, unspecified; H54.40 Blindness, one eye, unspecified eye; Z85.3 Personal history of malignant neoplasm of breast

== ENCOUNTER 2017-10-26 16:43 | Inpatient (IN) | payer OTHER ==
[2017-10-26 17:02] VITALS: BMI 42.3
[2017-10-26] MEDS ORDERED: Morphine 100 MG in Sodium Chloride 0.9% 100 ML IV SCH (17:15)
[2017-10-26] MEDS ORDERED: Hyoscyamine 0.125 mg SL Tab SL SCH (19:00)
[2017-10-26 21:48] VITALS: BP 71/51; TEMP 97.2; O2SAT 96
[2017-10-26 23:42] VITALS: PULSE 72; RESP 12
--- NOTE | 2017-10-27 00:21 | CP.PCM.PRO ---
Pronouncement of Note - Clinical Findings Physical Exam: No Response Verbal/Painful Stimuli, Absent Peripheral Pulses{ Carotid & Femoral}, Absent Heart & Breath Sounds, No Pupillary Light Reflex, No Corneal Reflex, Pupils Fixed & Dilated, Absence of Vital Signs - Notifications Pronouncement Notifications: Family Notified, Atending Notified Press Machine Operator Notified: No - Autopsy Autopsy Requested: No - [place] [id number]
--- NOTE | 2017-10-27 06:17 | CP.PCM.HP ---
History of Present Illness - History of Present Illness History of Present Illness: 56 yo female with history of HTN and 8 years history of bilateral breast cancer brought by family because of being debilitated and progressively weak for over 2 weeks. Patient had brain surgery on 08/11/17 in [facility] in [facility] in [place] because of wide spread metastasis. 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 In spite of that, patient was able to move around in her house until 2 weeks ago when she remained in bed, not eating and not taking her medications. Patient was diagnosed with bilateral breast cancer 8 yrs ago and had bilateral lumpectomy, chemotherapy and radiotherapy. Sister claimed radical mastectomy was offered but patient declined. Due to her very poor prognosis and widesptread metastases, the patient decided on Hospice Care , namimg her sister as her Surrogate decison maker . Pt lives alone and has no one to take care of her so Home Hospice is not an option, she was referred pt for [facility]. On 10/24: RESEARCH QUALITY ASSURANCE SPECIALIST called for seizure and since then patient became very lethargic/obtunded despite anti -seizure medication. Hospice came to re-eval patient and accepted patient for Inpatient care. The patient the same day she was admitted to hospice care, 2017. Present on Admission - Present on Admission Any Indicators Present on Admission: No Review of Systems - Review of Systems Systems not reviewed;Unavailable: Altered Mental Status Past Patient History - Infectious Disease Hx of Infectious Diseases: None - Tetanus Immunizations Tetanus Immunization: Unknown - Past Medical History & Family History Past Medical History?: Yes - Past Social History Smoking Status: Never Smoked - CARDIAC Hx Cardiac Disorders: Yes Hx Hypertension: Yes - PULMONARY Hx Respiratory Disorders: No - NEUROLOGICAL Hx Neurological Disorder: Yes Hx Seizures: Yes - HEENT Hx HEENT Problems: Yes Hx Blind: Yes (right eye) - RENAL Hx Chronic Kidney Disease: No - ENDOCRINE/METABOLIC Hx Endocrine Disorders: No - HEMATOLOGICAL/ONCOLOGICAL Hx Blood Disorders: Yes Hx Cancer: Yes (breast,brain) Hx Chemotherapy: Yes - INTEGUMENTARY Hx Dermatological Problems: No - MUSCULOSKELETAL/RHEUMATOLOGICAL Hx Musculoskeletal Disorders: No Hx Falls: No - GASTROINTESTINAL Hx Gastrointestinal Disorders: No - GENITOURINARY/GYNECOLOGICAL Hx Genitourinary Disorders: Yes Hx Incontinence: Yes - PSYCHIATRIC Hx Psychophysiologic Disorder: No Hx Substance Use: No - SURGICAL HISTORY Hx Surgeries: Yes Hx Breast Biopsy: Yes Other/Comment: bilateral lumpectomy, brain surgery. surgery pancreas - ANESTHESIA Hx Anesthesia: Yes Hx Anesthesia Reactions: No Hx Malignant Hyperthermia: No Has any member of the family had a problem w/ anesthesia?: No Meds Allergies/Adverse Reactions: Allergies Allergy/AdvReac Type Severity Reaction Status Date / Time No Known Allergies Allergy Verified 08/25/17 15:56 Physical Exam - Additional Findings Additional findings: Please see note for physical exam as patient soon after being admitted to hospice. Results - Vital Signs Recent Vital Signs: Last Vital Signs Temp 97.2 F L 10/26/17 21:47 Pulse 71 10/26/17 21:47 Resp 12 10/26/17 21:35 BP 71/51 L 10/26/17 21:47 Pulse Ox 96 10/26/17 21:47 Assessment & Plan - Assessment and Plan (Free Text) Plan: 1. Metastatic Breast Cancer very poor prognosis CT scan of head: metastatic lesions with vasogenic edema, no change from previous Pain mgt with Morphine IV , Ativan for anxiety Hospice came to re-eval pt and accepted her for Inpatient Hospice Patient was given Morphine drip, Ativan RTC and Levsin SL 2. Seizure sec to Brain Mets hospice care As mentioned above, patient on soon after being admitted to hospice care
== END 2017-10-26 23:30 | DRG 55 ==
LOC: H.ICU/CCU 17:01 → H.MEDSURG1 21:30
PROVIDERS: ADMIT Internal Medicine; ATTEND Internal Medicine
DX: C79.31 Secondary malignant neoplasm of brain (principal); G40.89 Other seizures; C78.7 Secondary malignant neoplasm of liver and intrahepatic bile duct; Z51.5 Encounter for palliative care; L89.322 Pressure ulcer of left buttock, stage 2; I10 Essential (primary) hypertension; F41.9 Anxiety disorder, unspecified; H54.62 Unqualified visual loss, left eye, normal vision right eye; Z66 Do not resuscitate; Z85.3 Personal history of malignant neoplasm of breast; Z92.21 Personal history of antineoplastic chemotherapy; Z92.3 Personal history of irradiation